=== PATIENT | female | born 1950 | race Caucasian/White ===

== ENCOUNTER 2022-01-02 13:53 | Emergency (ER) | payer BC, SELFPAY ==
--- NOTE | ~2022-01-02 | XR_ITS ---
EXAMINATION: XR CHEST CLINICAL INFORMATION: Tachycardia/hypertension COMPARISON: None TECHNIQUE: Frontal view of the chest was obtained. FINDINGS: No significant abnormality is noted involving the heart, lungs, mediastinum, bony thorax or soft tissues. XR/XR chest 1V IMPRESSION: Unremarkable chest examination.
[2022-01-02 15:21] VITALS: BP 158/101; PULSE 124; RESP 18; TEMP 37.2; O2SAT 96; BMI 34.4
--- NOTE | 2022-01-02 15:27 | ECG_ITS ---
Test Reason : tachycardia Blood Pressure : / mmHG Vent. Rate : 125 BPM Atrial Rate : 125 BPM P-R Int : 154 ms QRS Dur : 068 ms QT Int : 314 ms P-R-T Axes : 048 029 114 degrees QTc Int : 453 ms Sinus tachycardia Possible Left atrial enlargement Nonspecific ST and T wave abnormality Abnormal ECG No previous ECGs available Referred By: Generic ED Physician Electronically Signed By:ARYA PRIEST
[2022-01-02 15:50] LABS: MANUAL DIFF FLAG NO
[2022-01-02 15:51] LABS: Appearance Urine HAZY; Basophils Percent Auto 0.4 % (0-2); Color Urine YELLOW; Eosinophils Percent Auto 0.4 % (0-4); Glucose Urine UA >=1000 MG/DL (NEG); Hematocrit 49.9 % (37.0-47.0); Hemoglobin 16.5 g/dl (12.0-16.0); Imm Gran Abs Auto 0.03 X10*3/uL (0.00-0.03); Imm Gran Pct Auto 0.3 % (0.0-0.4); Leukocyte Esterase Urine NEG (NEG); Lymphocytes Absolute Auto 2.7 X10*3/uL (1.2-4.9); Mean Corpuscular HGB Conc 33.1 g/dl (31.0-35.0); Mean Corpuscular Hemoglobin 29.6 pg (27.0-33.0); Mean Corpuscular Volume 89.6 fL (80.0-98.0); Monocytes Absolute Auto 0.9 X10*3/uL (0.1-1.2); Neutrophils Absolute Auto 5.9 x10*3/uL (2.0-8.3); Neutrophils Percent Auto 61.9 % (45-73); Nitrite Urine NEG (NEG); PH 5.5 (5.0-8.0); Platelet Count 320 X10*3/uL (160-400); Red Blood Count 5.57 X10*6/uL (4.20-5.50); Red Cell Distribution Width 13.2 % (11.0-16.0); Specific Gravity - Urine 1.025 (1.005-1.025); UACC Culture Trigger NO; Urine Blood TRACE (NEG); Urine Ketones 40 MG/DL (NEG); Urine Protein NEG (NEG-TRACE); White Blood Count 9.5 X10*3/uL (4.8-10.8)
[2022-01-02 16:01] LABS: Bacteria Urine TRACE /LPF; RBC Urine 0-2 /HPF (0); Squamous Epithelial Cell Urine 1+ /LPF; WBC Urine 0 /HPF (0-4)
[2022-01-02 16:03] LABS: Anion Gap 17 (12-20); Blood Urea Nitrogen 13 mg/dL (9-16); Calcium 9.6 mg/dL (8.4-10.2); Carbon Dioxide 25 mmol/L (22-29); Chloride 98 mmol/L (96-108); Creatinine Clr Calc Pharmacy 49.8; Estimated Glomerular Filt Rate 59; Glucose Random 312 mg/dL (60-115); Potassium 4.2 mmol/L (3.3-5.1); Sodium 136 mmol/L (135-145)
[2022-01-02 16:11] VITALS: BP 196/96; PULSE 124
[2022-01-02 16:11] LABS: Troponin-I High Sensitivity 3.7 ng/L (<3.5-17.0)
--- NOTE | 2022-01-02 16:30 | ED_ITS ---
HPI - General Adult General Chief complaint: General Medical Stated complaint: UTI/Cellulitis Time Seen by Provider: 01/02/22 16:05 Source: patient Mode of arrival: ambulatory Limitations: no limitations History of Present Illness HPI narrative: This is a 71-year-old female with no significant medical history presenting to the emergency department with complaints of burning with urination, itching to the peritoneal are/vagina, white thick vaginal discharge, and pain/burning inside the vagina. She tells me that this started about 3-4 days ago and has been progressively worsening. She tells me this has never happened to her before. She tells me her urine is darker than usual. Denies recent antibiotic use, recent upper respiratory infection. Does not have a history of diabetes. She is not immunocompromised that she knows of. She denies fevers, chills, nausea, vomiting, chest pain, shortness of breath, abdominal pain, changes in bowel habits. Patient tells me that she place warm compresses to the affected area and sort of helped. Onset (ago): day(s) (3) Location: genitals Radiation: non-radiation Severity: severe Quality: burning Relieving factors: none Exacerbating factors: none Associated symptoms: denies other symptoms Treatments prior to arrival: none Related Data Previous Rx's Medication Instructions Recorded fluconazole 150 mg tablet 150 mg PO DAILY #1 tab 01/02/22 Allergies Allergy/AdvReac Type Severity Reaction Status Date / Time Unable to Assess Allergy Unverified 01/02/22 16:05 Review of Systems Review of Systems: Constitutional : No Weight loss, No Fever, No Chills, No Fatigue, No Malaise ENT/Mouth : No sore throat, No Rhinorrhea Eyes: No Eye Pain, No Swelling, No Redness Cardiovascular : No Chest Pain, No SOB, No Dyspnea on Exertion, No Orthopnea, No Edema, No Palpitations Respiratory : No Cough, No Sputum, No Wheezing Gastrointestinal : No Nausea, No Vomiting, No Diarrhea, No Constipation, No abdominal Pain, No Hematochezia, No Melena Genitourinary : No Dysuria, No Urinary Frequency, No Hematuria, Musculoskeletal : No joint pain, No Myalgias, No Joint Swelling Skin : No Skin Lesions, No rash Neuro : No Weakness, No Numbness, No Dizziness, No Headache Psych : No Anxiety/Panic, No Depression All other systems reviewed and are negative Yes all other systems are reviewed and are negative [facility] Past Medical History Attestation statement: The following information was validated with the patient. Source: old records reviewed and nursing notes reviewed Surgical History H/O: hysterectomy Social History Social History Advance Directives: No Advance Directives Information Provided: Yes Physical Exam ED Vital Signs: Vital Signs - 24 hr 01/02/22 15:21 01/02/22 16:11 Temperature 98.9 F Pulse Rate 124 H 124 H Respiratory Rate 18 Blood Pressure 158/101 H 196/96 H Pulse Oximetry 96 BMI result Body Mass Index 34.4 Vital signs stable patient is noted to be slightly hypertensive. However not having any symptoms of hypertension such as headaches, dizziness, vision changes, neck pain, lightheadedness, disequilibrium. Appearance: Alert.? Oriented X3.? No acute distress.? Head: Normocephalic, atraumatic, no step-offs or deformities ENT: Pharynx normal.? Neck: Normal inspection.? Neck supple.? CVS: Normal heart rate and rhythm.? Pulses normal.? Respiratory: No respiratory distress.? Breath sounds normal.? Abdomen: Soft and nontender.? Skin: Skin warm and dry.? Normal skin color.? Normal skin turgor.? Sensitive exam: Patient's labia noted to be edematous, erythematous, there are small white lesions noted to the labia likely secondary to excoriations. There is a white thick curd like vaginal discharge noted. Normal internal exam other than some white thick curd like vaginal discharge Extremities: No lower extremity edema.? No calf ttp. 5/5 strength to bilateral upper and lower extremities Neuro: Oriented X 3.? No motor deficit.? No sensory deficit. CN 2-12 intact Course Reevaluation(s) Reevaluation #1: No leukocytosis, no evidence signs of anemia. H&H slightly elevated likely secondary to dehydration/hemoconcentration. Chemistry with no acute electrolyte abnormalities. Patient's sugar is noted to be elevated, I will have her follow- up with her PCP for following of her glucose. If her glucose has been elevated for a while, undiagnosed this could be contributing to yeast infection. Troponin negative EKG nonischemic. Unlikely ACS. Chest x-ray within normal limits. UA negative for infection. Serology pending at this time. No signs of cellulitis. Time: 16:40 Reevaluation #2: Patients heart rate improved. Patient tells me doctors offices/hospitals make her very nervous. Repeat BP 150/88 Pulse 90. Denies palpitations, cp, sob, meadows, dizziness Patient swab positive for yeast. Herpes, chlamydia, BV, Trichomonas pending. At this time patient will be given Diflucan, discharged home with OBGYN follow- up. I will also have her follow-up with a PCP. I discussed with patient that her sugar was elevated and she should follow-up with a provider to further look into this. I gave patient a list of PCPs in the area who she can follow-up with. I made it clear to patient that this could be high sugars leading to a fungal infection. Patient understand severity of this, she tells me she will see If needed. Provided her with discharge instructions and strict return precautions. Comfortable w/ discharge home Time: 17:53 Medical Decision Making [facility] Narrative Medical decision making narrative: [id number] 71 yo f presents w/ burning with urination, vaginal discharge, and puritis to the vaginal/peritoneal area x3 days worsening. Upon exam there is white thick curd like vaginal discharge noted likely yeast some excoriations are also noted overlying bilateral labia is. The labia is noted to be slightly edematous and erythematous. No evidence signs of cellulitis. The area is not warm to the touch. Patient's blood pressure is noted to be elevated however she is not having symptoms associated with hypertension denies vision changes, headache, neck pain, dizziness, disequilibrium, lethargy, confusion. She was also noted to be tachycardic initially however she appear to be anxious. She is much calmer now in her heart rate has gone down. She denies shortness of breath, calf pain, negative Tra bilaterally unlikely DVT/PE. Plan at this time is to obtain basic labs, urine, bacterial vaginosis, Trichomonas, yeast, chlamydia, gonorrhea, herpes swabs. I will prophylactically treat patient for a yeast infection at this time. And wait further swabs to come back as the likely diagnosis is yeast. To note patient tells me she has not seen a doctor in over 30 years, not regularly followed by an OBGYN, I advised her to follow-up with an OBGYN for further evaluation. Medical Records Medical records reviewed: Yes I reviewed the patient's medical records. Lab Data Lab results reviewed: Yes I reviewed the patient's lab results. Result diagrams: 01/02/22 15:44 01/02/22 15:44 Labs: Lab Results 01/02/22 01/02/22 01/02/22 Range/Units 15:44 15:44 15:44 WBC 9.5 (4.8-10.8) X10*3/uL RBC 5.57 H (4.20-5.50) X10*6/uL Hgb 16.5 H (12.0-16.0) g/dl Hct 49.9 H (37.0-47.0) % MCV 89.6 (80.0-98.0) fL MCH 29.6 (27.0-33.0) pg MCHC 33.1 (31.0-35.0) g/dl RDW 13.2 (11.0-16.0) % Plt Count 320 (160-400) X10*3/uL MPV 9.0 L (9.4-12.3) fL Immature Gran % (Auto) 0.3 (0.0-0.4) % Neut % (Auto) 61.9 (45-73) % Lymph % (Auto) 28.0 (20-40) % [place] % (Auto) 9.0 (2-11) % Eos % (Auto) 0.4 (0-4) % Baso % (Auto) 0.4 (0-2) % Lymph # (Auto) 2.7 (1.2-4.9) X10*3/uL [place] # (Auto) 0.9 (0.1-1.2) X10*3/uL Eos # (Auto) 0.0 (0.0-0.4) X10*3/uL Baso # (Auto) 0.0 (0.0-0.2) X10*3/uL Abs Immat Gran (auto) 0.03 (0.00-0.03) X10*3/uL Absolute Neuts (auto) 5.9 (2.0-8.3) x10*3/uL Absolute Nucleated RBC 0.000 (0.0-0.012) X10*3/uL Nucleated RBC % (auto) 0.0 (0.0-0.2) /100WBC Sodium 136 (135-145) mmol/L Potassium 4.2 (3.3-5.1) mmol/L Chloride 98 (96-108) mmol/L Carbon Dioxide 25 (22-29) mmol/L Anion Gap 17 (12-20) BUN 13 (9-16) mg/dL Creatinine 0.93 (0.5-1.4) mg/dL Estim Creat Clear Calc 49.8 Estimated GFR 59 Random Glucose 312 H (60-115) mg/dL Calcium 9.6 (8.4-10.2) mg/dL AST 25 (5-31) U/L ALT 40 H (0-31) U/L Troponin I High Sens 3.7 (<3.5-17.0) ng/L Urine Color Urine Appearance Urine pH (5.0-8.0) Ur Specific [place] (1.005-1.025) Urine Protein (NEG-TRACE) MG/DL Urine Glucose (UA) (NEG) MG/DL Urine Ketones (NEG) MG/DL Urine Blood (NEG) Urine Nitrite (NEG) Ur Leukocyte Esterase (NEG) Urine RBC (0) /HPF Urine WBC (0-4) /HPF Ur Squamous Epith Cells /LPF Urine Bacteria /LPF 01/02/22 Range/Units 15:44 WBC (4.8-10.8) X10*3/uL RBC (4.20-5.50) X10*6/uL Hgb (12.0-16.0) g/dl Hct (37.0-47.0) % MCV (80.0-98.0) fL MCH (27.0-33.0) pg MCHC (31.0-35.0) g/dl RDW (11.0-16.0) % Plt Count (160-400) X10*3/uL MPV (9.4-12.3) fL Immature Gran % (Auto) (0.0-0.4) % Neut % (Auto) (45-73) % Lymph % (Auto) (20-40) % [place] % (Auto) (2-11) % Eos % (Auto) (0-4) % Baso % (Auto) (0-2) % Lymph # (Auto) (1.2-4.9) X10*3/uL [place] # (Auto) (0.1-1.2) X10*3/uL Eos # (Auto) (0.0-0.4) X10*3/uL Baso # (Auto) (0.0-0.2) X10*3/uL Abs Immat Gran (auto) (0.00-0.03) X10*3/uL Absolute Neuts (auto) (2.0-8.3) x10*3/uL Absolute Nucleated RBC (0.0-0.012) X10*3/uL Nucleated RBC % (auto) (0.0-0.2) /100WBC Sodium (135-145) mmol/L Potassium (3.3-5.1) mmol/L Chloride (96-108) mmol/L Carbon Dioxide (22-29) mmol/L Anion Gap (12-20) BUN (9-16) mg/dL Creatinine (0.5-1.4) mg/dL Estim Creat Clear Calc Estimated GFR Random Glucose (60-115) mg/dL Calcium (8.4-10.2) mg/dL AST (5-31) U/L ALT (0-31) U/L Troponin I High Sens (<3.5-17.0) ng/L Urine Color YELLOW Urine Appearance HAZY Urine pH 5.5 (5.0-8.0) Ur Specific [place] 1.025 (1.005-1.025) Urine Protein NEG (NEG-TRACE) MG/DL Urine Glucose (UA) >=1000 H (NEG) MG/DL Urine Ketones 40 (NEG) MG/DL Urine Blood TRACE (NEG) Urine Nitrite NEG (NEG) Ur Leukocyte Esterase NEG (NEG) Urine RBC 0-2 (0) /HPF Urine WBC 0 (0-4) /HPF Ur Squamous Epith Cells 1+ /LPF Urine Bacteria TRACE /LPF ECG Data Attestation: I personally reviewed and interpreted this ECG as follows: Prior ECG tracings: available for review Interpretation: Ventricular rate of 125, ND normal, QRS normal, QT/QTC normal. EKG shows sinus tachycardia with possible left atrial enlargement, no ST elevations or inversions concerning for ischemia. No previous EKGs to compare with. Critical Care Time Critical Care Time Critical Care Time: No Discharge Plan Discharge Clinical Impression: Candidiasis of vulva and vagina Patient Disposition: Home, Self-Care Additional Instructions: Take your medications as prescribed. If you were prescribed antibiotics today, it is important that you take your medication to their entirety, do not skip any doses, do not finish them early. Follow-up with your primary care provider this week. Please also follow-up with an OBGYN provider, this is important as you have not seen 1 in years. Return to the emergency department with new or worsening symptoms. Such as fev ers, chills, chest pain, shortness of breath, nausea, vomiting, dizziness, headache, vision changes, lethargy In case of emergency call 911 We have given you 1 dose of Diflucan today, if needed please take another 1- 2 days. Your prescriptions [facility] Please follow-up with a primary care provider I have provided you with a list of primary care providers in the area. Your random glucose level was 312 today, you should be further evaluated by your PCP. You are also noted to have a high blood pressure today, it is important that you follow-up with your PCP. If possible please check your blood pressure at home on Mondays, Wednesdays and Fridays, write this information down and share it with your primary care provider. Prescriptions: New fluconazole 150 mg tablet 150 mg PO DAILY Qty: 1 0RF Referrals: Physician,None [Primary Care Provider] - 2 days Jose Hobson MD [Physician] - 1 week Stand Alone Forms: Work/School Release
[2022-01-02 17:03] LABS: Add Laboratory Test ADDED
[2022-01-02 17:14] LABS: Alanine Aminotransferase 40 U/L (0-31); Aspartate Amino Transferase 25 U/L (5-31)
[2022-01-02] MEDS: Fluconazole 150 MG TABLET PO (17:19)
[2022-01-02 17:52] VITALS: BP 155/88; PULSE 90; O2SAT 95
[2022-01-03 09:56] LABS: CT PCR NOT DETECTED (Not Detect.); NG PCR NOT DETECTED (Not Detect.)
[2022-01-03 11:16] LABS: BV Int Neg Control Negative (Negative); BV Int Pos Control Positive (Positive)
== END 2022-01-02 18:10 | disposition home or self-care (01) ==
PROVIDERS: Physician Assistant; Emergency Provider Internal Medicine
DX: A60.04 Herpesviral vulvovaginitis (principal); B37.3 Candidiasis of vulva and vagina; N76.0 Acute vaginitis
CPT/HCPCS: 36415; 71045; 80048; 81001; 84450; 84460; 84484; 85025; 87255; 87480; 87491; 87510; 87591; 87660; 93005; 99283; 99284

== ENCOUNTER 2022-02-17 10:37 | Outpatient (REF) | payer BC, SELFPAY ==
[2022-02-18 13:16] LABS: BV Int Neg Control Negative (Negative); BV Int Pos Control Positive (Positive)
== END 2022-02-17 10:38 | disposition home or self-care (01) ==
LOC: HO.LAB 10:37
PROVIDERS: Visit Provider Obstetrics & Gynecology
DX: N76.0 Acute vaginitis (principal)
CPT/HCPCS: 87480; 87510; 87660

== ENCOUNTER 2022-03-06 10:58 | Outpatient (REF) | payer BC, SELFPAY | END 2022-03-06 10:59 | disposition home or self-care (01) | LOC: HO.LAB 10:58 | PROVIDERS: Visit Provider Obstetrics & Gynecology | DX: N90.89 Other specified noninflammatory disorders of vulva and perineum (principal) | CPT/HCPCS: 56605; 56606; 88305 ==

== ENCOUNTER 2022-04-03 10:35 | Outpatient (REF) | payer BC, SELFPAY | END 2022-04-03 10:36 | disposition home or self-care (01) | LOC: HO.LAB 10:35 | PROVIDERS: Visit Provider Obstetrics & Gynecology | DX: N90.89 Other specified noninflammatory disorders of vulva and perineum (principal) | CPT/HCPCS: 56605; 88304; 88305 ==

== ENCOUNTER 2022-05-20 09:31 | Outpatient (REF) | payer BC, SELFPAY ==
--- NOTE | ~2022-05-20 | MM_ITS ---
EXAMINATION: BONE DENSITOMETRY CLINICAL INDICATION: Menopause. COMPARISON: None (current study represents initial baseline exam). TECHNIQUE: Using a [employer] DXA System (software version: 13.1) manufactured by [employer], dual-energy x-ray absorptiometry was performed of the lumbar spine and left hip. The images are of good technical quality. Summary results are attached. FINDINGS: AP SPINE L1-L4: BMD 1.303 g/cm2, Z-score 2.1, T-score 1.0, normal. LEFT FEMUR, NECK: BMD 0.948 g/cm2, Z-score 0.7, T-score -0.6, normal. LEFT FEMUR, TOTAL: BMD 1.052 g/cm2, Z-score 1.5, T-score 0.4, normal. IDENTIFIED RISK FACTORS: Early menopause, history of fracture (adult), hysterectomy, bilateral oophorectomy, secondary osteoporosis. HISTORY OF FRACTURE: Lower leg/foot. MEDICATIONS: None listed. MM/XR DEXA axial skeleton IMPRESSION: 1. DIAGNOSIS: Normal bone density based on the lowest T-score value of -0.6 in the femoral neck applying World Health Organization criteria. 2. 10-YEAR FRACTURE RISK PREDICTION, FRAX: According to the guidelines, FRAX calculation should only be performed on patients in the osteopenia bone density category. Therefore, FRAX was not performed on this patient. 3. Treatment Recommendations: NOF guidelines recommend consideration for treatment in postmenopausal women and men age 50 and older presenting with the following: -A hip or vertebral (clinical or morphometric) fracture. -T-score less than or equal to -2.5 at the femoral neck or spine after appropriate evaluation to exclude secondary causes. -Low bone mass at the hip or spine and a 10-year fracture probability by FRAX of greater than or equal to 3% for hip fracture or greater than or equal to 20% for major osteoporotic fracture based on the [place] adapted WHO algorithm. 4. Other Recommendations: All treatment decisions require clinical judgment and consideration of individual patient factors, including patient preferences, comorbidities, previous drug use, risk factors not captured in the FRAX model (e.g. frailty, falls, vitamin D deficiency, increased bone turnover, interval significant decline in bone density) and possible under or overestimation of fracture risk by FRAX. FUTURE SCAN RECOMMENDATION: People with diagnosed cases of osteoporosis or at high risk for fracture should have regular bone mineral density tests. For patients eligible for Medicare, routine testing is allowed once every 2 years. The testing frequency can be increased to one year for patients who have rapidly progressing disease, those who are receiving or discontinuing medical therapy to restore bone mass, or have additional risk factors.
--- NOTE | ~2022-05-20 | MM_ITS ---
EXAMINATION: MM SCREENING DIGITAL BREAST TOMOSYNTHESIS, BILATERAL CLINICAL INFORMATION: Screening. Asymptomatic. The lifetime risk of breast cancer based on the Tyrer-Cuzick Model is 5%. COMPARISON: Mammography: None. TECHNIQUE: Digital breast tomosynthesis is performed in both the craniocaudal and mediolateral oblique views along with computer-aided detection (CAD). Synthesized 2D images are generated from the tomosynthesis. FINDINGS: The breasts are almost entirely fatty (ACR BI-RADS breast composition Category a). Right Breast: Right breast appears unremarkable without abnormal dominant mass or grouping of suspicious calcifications. Left Breast: About the retroareolar region of the left breast, there is a lobular circumscribed density measuring approximately 7 x 6 4 mm in size for which spot compression view and ultrasound is recommended. MM/MM tomosynthesis screening BI IMPRESSION: Left breast density for further evaluation as described. ASSESSMENT: BI-RADS 0: Incomplete - Need Additional Imaging Evaluation RECOMMENDATION: 1. Additional views of the left breast. 2. Targeted ultrasound if warranted after review of the additional views. 3. Radiology department staff will contact the patient for additional imaging.
== END 2022-05-20 09:32 | disposition home or self-care (01) ==
LOC: HO.MAMMO 09:31
PROVIDERS: Visit Provider Obstetrics & Gynecology
DX: Z13.820 Encounter for screening for osteoporosis (principal); Z12.31 Encounter for screening mammogram for malignant neoplasm of breast; Z78.0 Asymptomatic menopausal state
CPT/HCPCS: 77063; 77067; 77080

== ENCOUNTER 2022-06-05 14:43 | Outpatient (REF) | payer BC, SELFPAY ==
--- NOTE | ~2022-06-05 | MM_ITS ---
EXAMINATION: MM DIAGNOSTIC DIGITAL BREAST TOMOSYNTHESIS, LEFT US DIAGNOSTIC ULTRASOUND BREAST, LEFT CLINICAL INFORMATION: Recall from new baseline mammography for small nodule retroareolar left breast. COMPARISON: Mammography 05/20/2022 (new baseline, BI-RADS 0). TECHNIQUE: Digital breast tomosynthesis is performed. 2D images are generated from the tomosynthesis. The following views are obtained: Spot CC, spot ML. Ultrasound left breast is targeted to the lower retroareolar region using grayscale imaging and color Doppler. FINDINGS: The breasts are almost entirely fatty (ACR BI-RADS breast composition Category a). Additional views show smooth 5 mm nodule 6:00 retroareolar region. Chronicity is unknown. Prior mammography performed decades ago and no longer available. Ultrasound left breast demonstrates a circumscribed complicated cyst 6:00 retroareolar region measuring 0.5 cm. There are some geographic internal echoes without surrounding or internal color flow, likely benign apocrine metaplasia. No associated duct ectasia. No solid mass. Results are discussed with the patient at time of visit. Management plan is for short interval six-month follow-up left breast imaging to confirm stability of probable benign complicated cyst. MM/MM tomosynthesis added views L IMPRESSION: Small benign-appearing complicated cyst 6:00 retroareolar region. ASSESSMENT: BI-RADS 3: Probably Benign RECOMMENDATION: Diagnostic left mammography and targeted left breast ultrasound in 6 months. This patient's information was entered into a reminder system with a target due date for their next mammogram.
== END 2022-06-05 14:44 | disposition home or self-care (01) ==
LOC: HO.MAMMO 14:43
PROVIDERS: Visit Provider Obstetrics & Gynecology
DX: R92.2 Inconclusive mammogram (principal); N63.25 Unspecified lump in the left breast, overlapping quadrants
CPT/HCPCS: 76642; 77061; 77065

== ENCOUNTER 2022-12-09 10:39 | Outpatient (REF) | payer BC, SELFPAY ==
--- NOTE | ~2022-12-09 | MM_ITS ---
EXAMINATION: MM DIAGNOSTIC DIGITAL BREAST TOMOSYNTHESIS, LEFT US DIAGNOSTIC ULTRASOUND BREAST, LEFT CLINICAL INFORMATION: Short interval six-month follow-up probable benign nodule/complicated cyst retroareolar left breast initially noted at new baseline mammography. TC score 5%. COMPARISON: Mammography: 06/05/2022, 05/20/2022 (new baseline, BI-RADS 0), left breast ultrasound 06/05/2022. TECHNIQUE: Digital breast tomosynthesis is performed in both the craniocaudal and mediolateral oblique views along with computer-aided detection (CAD). Synthesized 2D images are generated from the tomosynthesis. Ultrasound left breast retroareolar region is performed using grayscale and color Doppler without and with harmonics. FINDINGS: The breasts are almost entirely fatty (ACR BI-RADS breast composition Category a). The retroareolar nodule is stable. There is no developing density or interval architectural abnormality. No abnormal calcifications. Remainder left breast unremarkable. Ultrasound demonstrates circumscribed complicated cyst 6:00 retroareolar region under 1 cm, similar to prior targeted ultrasound. There are some internal geographic echoes without color flow, likely benign apocrine metaplasia. Results are discussed with the patient at time of visit. MM/MM tomosynthesis diagnostic LT IMPRESSION: -Benign-appearing retroareolar nodule stable. ASSESSMENT: BI-RADS 3: Probably Benign RECOMMENDATION: Diagnostic mammography and targeted left breast ultrasound at time of annual bilateral mammography, due in 6 months. This patient's information was entered into a reminder system with a target due date for their next mammogram.
== END 2022-12-09 10:40 | disposition home or self-care (01) ==
LOC: HO.MAMMO 10:39
PROVIDERS: Visit Provider Obstetrics & Gynecology
DX: R92.2 Inconclusive mammogram (principal)
CPT/HCPCS: 76642; 77061; 77065

== ENCOUNTER 2023-06-09 14:32 | Outpatient (AMB) | payer BC, SELFPAY ==
--- NOTE | 2023-06-09 14:34 | MHC.OFFVIS ---
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 No complaints. Last Pap/HPV was normal many years ago no history of abnormal Pap see last 25 years Last Mammogram BI-RADS 3 in 12/25, the patient is scheduled for another screening mammogram in a week The patient has recently seen her GI were recommended no more colonoscopies Last DEXA scan was done in 05/26 [facility] Medical History Diabetes High blood pressure Surgical History H/O: hysterectomy Social History Household Members: None Housing: House Alcohol intake: never Patient Tobacco Use Status: Former Tobacco user Female Reproductive History Menstrual control method: permanent sterilization Total pregnancies: 4 Full term: 3 Number of Living Children: 3 Ab spontaneous: 1 Date of Mammogram: 12/09/22 Review of Systems Const All systems reviewed & are unremarkable except as noted in HPI and below Card Reports as per HPI Resp Reports as per HPI GI Reports as per HPI and Reports no additional complaints Reports as per HPI Physical Exam Vital Signs: Last Vital Signs BP 130/78 06/09/23 14:36 BMI result Body Mass Index 32.7 Const General: cooperative, healthy appearing and comfortable Chest Chest palpation & inspection: normal inspection of the chest and normal palpation of entire chest wall Breast/axilla inspection: normal inspection of the breasts and normal inspection of the axillae Breast/axilla palpation: normal palpation of the breasts, normal palpation of the axillae and no axillary lymphadenopathy Resp Effort & Inspection: normal respiratory effort Auscultation: clear to auscultation bilaterally Percussion: percussion normal Cardio Palpation: normal PMI Rate: regular rate Rhythm: regular rhythm Heart sounds: no murmurs and no rubs Peripheral pulses: Peripheral pulses 2+ throughout GI Inspection: Yes normal to inspection Palpation (GI): Soft to palpation, nontender, no guarding, not rigid and No hepatosplenomegaly present Percussion: Yes normal to percussion Auscultation: normal bowel sounds Rectal Exam - Female: deferred General: Yes bladder normal to palpation External Female Exam: No lesion Speculum Exam - Vagina: normal appearance of the vagina, normal palpation, normal vaginal discharge and not erythematous Speculum Exam - Cervix: normal appearance of the cervix and normal palpation Bimanual exam- vagina & uterus: normal bimanual exam, normal palpation, uterine size normal, bladder normal to palpation, consistency normal and normal palpation Bimanual Exam- Adnexa, other: normal adnexae, no masses and no tenderness Assessment & Plan Assessment & Plan (1) Well woman exam: Code(s): Z01.419 - Encounter for gynecological examination (general) (routine) without abnormal findings Plan: Co testing not indicated since the patient 's age is above 65 with no history of abnormal Pap smears last 25 years. Counseled the patient about the recommended dietary allowance of 1200 mg of Calcium & 800 IU of vitamin D. Mammogram scheduled in 2 weeks. The patient was instructed to perform monthly self-breast exams and to schedule an annual exam in a year; all questions answered and the patient verbalized understanding. Coding Level of Care Code Est Pt Prev Care >65y(97869) Diagnoses Well woman exam Z01.419
[2023-06-09 14:36] VITALS: BP 130/78; BMI 32.7
== END 2023-06-09 15:07 | disposition home or self-care (01) ==
PROVIDERS: Visit Provider Obstetrics & Gynecology
DX: Z01.419 Encounter for gynecological examination (general) (routine) without abnormal findings (principal)
CPT/HCPCS: 99397

== ENCOUNTER → 2023-06-09 14:32 | Outpatient (BNVA) | payer BC, SELFPAY | PROVIDERS: Visit Provider Obstetrics & Gynecology ==

== ENCOUNTER 2023-06-18 13:53 | Outpatient (REF) | payer BC, SELFPAY ==
--- NOTE | ~2023-06-18 | US_ITS ---
EXAMINATION: MM DIAGNOSTIC DIGITAL BREAST TOMOSYNTHESIS, BILATERAL US BREAST LIMITED, LEFT MAMMOGRAPHY: CLINICAL INFORMATION: 6 month Follow-up probably benign complicated cyst left breast retroareolar region. Patient also due for bilateral screening. COMPARISON: Mammography: 12/09/2022, 06/05/2022, 05/20/2022. TECHNIQUE: Digital breast tomosynthesis is performed in both the craniocaudal and mediolateral oblique views along with computer-aided detection (CAD). Synthesized 2D images are generated from the tomosynthesis. FINDINGS: The breasts are almost entirely fatty (ACR BI-RADS breast composition Category a). There is a stable and unchanged circumscribed 5 mm nodule in the left breast anterior one third, retroareolar region. This will be evaluated by ultrasound. Otherwise, their are no suspicious masses, suspicious grouped calcifications, or areas of architectural distortion in either breast. The parenchymal pattern is stable from prior exams. ULTRASOUND: CLINICAL INFORMATION: 6 month follow-up probably benign complicated cyst left breast retroareolar region. COMPARISON: 12/09/2022, 06/05/2022. TECHNIQUE: Targeted sonographic evaluation was performed using a high frequency linear transducer. Attention was given to the left retroareolar complicated cyst. Selected archived documentation. FINDINGS: LEFT BREAST: There is a stable 5 mm complicated cyst in the retroareolar region of the left breast. It is completely unchanged in size and morphology. This has been stable over one year, and is benign. No further follow-up is deemed necessary. US/US breast LT limited mamm only IMPRESSION: There are no findings suspicious for malignancy. There are no changes from the prior studies. Stable 5 mm complicated cyst in the left retroareolar breast is benign and requires no further follow-up. Recommend the patient return to routine annual screening. OVERALL ASSESSMENT: Mammography: BI-RADS 2 - Benign Findings Ultrasound: BI-RADS 2 - Benign Findings RECOMMENDATION: 1 year F/U Results were provided to the patient at time of visit by the technologist. This patient's information was entered into a reminder system with a target due date for their next mammogram.
== END 2023-06-18 13:54 | disposition home or self-care (01) ==
LOC: HO.MAMMO 13:53
PROVIDERS: PCP Internal Medicine; Visit Provider Obstetrics & Gynecology
DX: N63.42 Unspecified lump in left breast, subareolar (principal)
CPT/HCPCS: 76642; 77062; 77066

== ENCOUNTER → 2023-06-18 14:00 | Outpatient (BNV) | payer BC, SELFPAY | PROVIDERS: PCP Internal Medicine; Visit Provider Radiology Diagnostic Radiology | DX: N60.02 Solitary cyst of left breast (principal) | CPT/HCPCS: 76642; 77062; 77066 ==

== ENCOUNTER 2024-04-01 10:04 | Outpatient (AMB) | payer BC, SELFPAY ==
[2024-04-01 10:11] VITALS: BP 144/64; PULSE 97; BMI 33.2
--- NOTE | 2024-04-01 10:11 | MHC.OFFVIS ---
Vital Signs 04/01/24 10:11 Height 4 ft 11 in Weight 164 lb 3.91 oz BMI 33.2 BP 144/64 H Blood Pressure Location Lt brachial Position Sitting Pulse 97 Pulse Source Pulse Oximeter Intake Visit Reasons: T2DM/CONFIRMED Intake Note: New patient present today for T2DM, referred by PCP. Last Diabetic Eye exam: 02/2024 Last Podiatry Visit: Doesn't have one. 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 Accompanied by: Daughter Allergies Unable to Assess Allergy (Verified 04/01/24 10:18) Medication List - Last Reconciled 04/01/24 by Ashley Astudillo PA-C atorvastatin 10 mg PO DAILY blood sugar diagnostic (Accu-Chek Guide test strips) As directed blood-glucose meter (Accu-Chek Guide Glucose Meter) As directed clotrimazole-betamethasone 1-0.05 % 1 appl topical BID 5 days empagliflozin (Jardiance) 25 mg PO DAILY glipizide ER 2.5 mg PO DAILY lancets (Accu-Chek Softclix Lancets) As directed lisinopril 5 mg PO DAILY metoprolol succinate ER 25 mg PO DAILY HPI HPI T2DM/CONFIRMED: Details: Patient is a 74-year-old female with a significant past medical history of hypertension, hyperlipidemia, type 2 diabetes, and osteopenia presenting today for a diabetic consult. She is accompanied today by her daughter. Endo: Her A1c today is 8. She is currently on metformin 500 mg bid, glipizide 5 mg daily, Jardiance 25 mg a day. She is on an Jonathan inhibitor. Compliant with statin. She does not know her last lipid panel. Denies any hypoglycemic events. She was 1st diagnosed with diabetes last year. She states that when she 1st sought medical care in 30 years. She had symptoms of polyuria polydipsia in frequent UTIs. Her A1c initially was 13.5. She states that her blood sugars have been about 130-150 in the morning. She has not had any diabetic Education. She only checks her blood sugars once a day and states that she does not like doing this because needles make her nervous. Multiple people have diabetes in her family and a lot of them have CGM. She is wondering if she could get this today. Her last eye exam was 02/25 and she states that she was diagnosed with cataracts. This is her 1st eye exam in about 40 years. She does not see a size worker but sometimes gets tingling in her feet. Niece has thyroid cancer. CV: Her blood pressure today in the office is 144/64. States that her blood pressures are normally normal but she is nervous here today. She is on lisinopril 5 mg, metoprolol 25 mg. Cholesterol is managed with atorvastatin 10 mg. Uro: She is also dealing with a possible bladder cancer diagnosis. Had biopsies earlier this week. She is awaiting pathology. [facility] Medical History (Updated 04/01/24 @ 11:54 by Ashley Astudillo PA-C) Diabetic cataract of both eyes Uncontrolled type 2 diabetes mellitus with hyperglycemia Diabetes High blood pressure Surgical History (Updated 04/01/24 @ 10:20 by MADISON Eddy) History of bladder surgery H/O: hysterectomy Social History Household Members: None Housing: House Alcohol intake: never Patient Tobacco Use Status: Former Tobacco user Physical Exam Vital Signs: Last Vital Signs Pulse 97 04/01/24 10:11 BP 144/64 H 04/01/24 10:11 BMI result Body Mass Index 33.2 Const Orientation/consciousness: patient oriented x3 Neck Neck: Yes no lymphadenopathy Thyroid: Thyroid normal Carotids: no bruits Resp Auscultation: clear to auscultation bilaterally Cardio Rate: regular rate Rhythm: regular rhythm Heart sounds: S1 normal heart sound present and S2 normal heart sound present Peripheral pulses: dorsalis pedis present Neuro General: patient oriented x3, gait normal and no focal motor deficits Extrem Other: Monofilament sensation intact bilaterally. Vibratory sensation diminished bilaterally. Left worse than right. Skin intact. General: Yes normal to inspection Results AMB Hemoglobin A1c AMB Hemoglobin A1c 8.0 % Last Edit by MADISON Eddy on 04/01/24 11:28 Results Reviewed Results Reviewed: Laboratory Last Values Glucose (Clinic) 142 mg/dL (60-115) H 04/01/24 10:21 Assessment & Plan Assessment & Plan (1) Uncontrolled type 2 diabetes mellitus with hyperglycemia: Code(s): E11.65 - Type 2 diabetes mellitus with hyperglycemia Category: Medical Plan: We spent over an hour discussing the pathophysiology of type 2 diabetes, complications associated with diabetes and different oral medications/insulin/GLPs. We reviewed her diet and how it is very carbohydrate that. I have encouraged her to increase her protein and vegetable intake. We discussed the importance walking. Advised that she needs to monitor her feet daily. I have increased the metformin and she is going to make some lifestyle modifications. I will refer her for further diabetic Education as she pleases will be helpful. I have also referred her to a chute operator and I have encouraged her to keep a food journal. (2) Diabetic cataract of both eyes: Code(s): E11.36 - Type 2 diabetes mellitus with diabetic cataract Category: Medical Plan: Continue follow-up with Ophthalmology. (3) Needle phobia: Code(s): F40.298 - Other specified phobia Category: Medical Plan: Freestyle Agustina ordered. Advised to bring to her appointment with DM education. (4) High blood pressure: Code(s): I10 - Essential (primary) hypertension Category: Medical Qualifiers: Hypertension type: primary hypertension Qualified Code(s): I10 - Essential (primary) hypertension Plan: Elevated above goal today. She does have an upcoming appointment with her PCP and have encouraged her to monitor blood pressures at home. 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 E11.65 - Type 2 diabetes mellitus with hyperglycemia, I10 - Essential (primary) hypertension Medications: New metformin ER 1,000 mg PO BID 60 tabs 6RF blood-glucose meter,continuous (FreeStyle Agustina 3 [place]) As directed 1 ea 0RF E11.36 - Type 2 diabetes mellitus with diabetic cataract, E11.65 - Type 2 diabetes mellitus with hyperglycemia, F40.298 - Other specified phobia, I10 - Essential (primary) hypertension blood-glucose sensor (FreeStyle Agustina 3 Sensor device) Apply every 14 days As directed 2 ea 11RF E11.36 - Type 2 diabetes mellitus with diabetic cataract, E11.65 - Type 2 diabetes mellitus with hyperglycemia, F40.298 - Other specified phobia Coding Level of Care Code New Pt Level 5 (35633) Diagnoses Uncontrolled type 2 diabetes mellitus with hyperglycemia E11.65 Diabetic cataract of both eyes E11.36 Needle phobia F40.298 Primary hypertension I10 Hypertension type: primary hypertension Time Spent (min) 85
[2024-04-01 10:26] LABS: Glucose, Whole Blood 142 mg/dL (60-115)
== END 2024-04-01 11:24 | disposition home or self-care (01) ==
PROVIDERS: PCP Internal Medicine; Visit Provider Physician Assistant
DX: E11.65 Type 2 diabetes mellitus with hyperglycemia (principal); E11.36 Type 2 diabetes mellitus with diabetic cataract; F40.298 Other specified phobia; I10 Essential (primary) hypertension; Z13.9 Encounter for screening, unspecified
CPT/HCPCS: 99205; 99417

== ENCOUNTER → 2024-04-01 10:04 | Outpatient (BNVA) | payer BC, SELFPAY | PROVIDERS: PCP Internal Medicine; Visit Provider Physician Assistant | DX: E11.65 Type 2 diabetes mellitus with hyperglycemia (principal); E11.36 Type 2 diabetes mellitus with diabetic cataract; F40.298 Other specified phobia; I10 Essential (primary) hypertension; Z79.84 Long term (current) use of oral hypoglycemic drugs | CPT/HCPCS: 82947; 83036 ==

== ENCOUNTER 2024-04-18 10:32 | Outpatient (AMB) | payer BC, SELFPAY ==
[2024-04-18 10:46] VITALS: BMI 32.6
--- NOTE | 2024-04-18 10:46 | A.OFFVIS_ITS ---
VS Expanded 04/18/24 10:46 Height 4 ft 11 in Weight 161 lb 9.581 oz BMI 32.6 Intake Visit Reasons: DM/CONFIRMED Allergies Unable to Assess Allergy (Verified 04/01/24 10:18) Nutrition Presentation Details: Pt presents for MNT for T2DM with HTN. Pt was referred by [place] Astudillo Pt presents with daughter to this appt. Pt reports having increased appetite in the evening BS Monitoring Most Recent Diabetes Results: No Data to Display DFJ-Lcoknkw-Ix.Jeor Equation Height: 4 ft 11 in Weight: 162 lb Resting Metabolic Rate: 1145.63 Calculated Activity Level: Sedentary Calories Needed to Maintain Weight: 1374.76 Diagnosis Nutrition problem #1: food nutri know defi As related to (etiology) #1: diagnosis As evidenced by (sign/symptom) #1: elevated HgbA1c (8% in 03/2024) [facility] Medical History (Updated 04/01/24 @ 11:54 by Ashley Astudillo PA-C) Diabetic cataract of both eyes Uncontrolled type 2 diabetes mellitus with hyperglycemia Diabetes High blood pressure Surgical History (Updated 04/01/24 @ 10:20 by MADISON Eddy) History of bladder surgery H/O: hysterectomy Social History Household Members: None Housing: House Alcohol intake: never Patient Tobacco Use Status: Former Tobacco user Assessment & Plan Assessment & Plan (1) Uncontrolled type 2 diabetes mellitus with hyperglycemia: Code(s): E11.65 - Type 2 diabetes mellitus with hyperglycemia Category: Medical Plan: Wt: 73 Kg ( 04/2024 ) Est kcal needs as per MSJ: 1400 (40% carb, 30% protein/fat) Est fluid needs as per 25-30 ml/d: 2200 Est prot per day as per 1 g/kg bw: 73 Recommend fiber intake : 8-10 g per day and gradually increase to 25-28 g per day for women and 35-38 g for men or as tolerated Recommend sodium intake per day : less than 2000 mg Educated patient on: ( R = reviewed V = verbalizes understanding N/R = needs review N/A = not applicable * Food sources of carbohydrate, adequate serving sizes and its role in various health conditions: R * Differences between complex carbohydrates a simple carbohydrates, role of fiber in diet: R V * Lean protein sources of foods: R * Differences between types of fats and role in diet (mono on saturated fat fatty acids, saturated fatty acids, trans fats): R V N/R * Food sources of sodium in salt and healthy modifications for heart health in kidney health: R V R/V * Vitamins and minerals: R V N/R * Healthy plate method concept: R * Physical activity: Benefits a precaution: R * Hypoglycemia protocol (rule of 15): R V N/R * Dietary prevention of Hyperglycemia: R Patient Instructions: follow healthy plate method at dinner Reduce carbs as snack to 20 g or less (yogurt, or fruit and lightly salted nuts or carrots with hummus as example - see list of options in combination Coding Level of Care Code Nutr Indiv Intake (69744) Diagnoses Uncontrolled type 2 diabetes mellitus with hyperglycemia E11.65 Time Spent (min) 30
[2024-04-18 11:20] VITALS: BMI 32.7
== END 2024-04-18 11:41 | disposition home or self-care (01) ==
PROVIDERS: PCP Internal Medicine; Visit Provider Dietitian, Registered
DX: E11.65 Type 2 diabetes mellitus with hyperglycemia (principal)

== ENCOUNTER 2024-04-18 10:32 | Outpatient (AMB) | payer BC, SELFPAY ==
--- NOTE | 2024-04-18 10:59 | A.OFFVIS_ITS ---
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 Accompanied by: Daughter Allergies Unable to Assess Allergy (Verified 04/01/24 10:18) HPI Comprehensive Diabetes Asmnt Most Recent Diabetes Results: Creatinine 0.93 mg/dL (0.5-1.4) 01/02/22 Blood Urea Nitrogen 13 mg/dL (9-16) 01/02/22 Sodium 136 mmol/L (135-145) 01/02/22 Potassium 4.2 mmol/L (3.3-5.1) 01/02/22 Chloride 98 mmol/L (96-108) 01/02/22 Carbon Dioxide 25 mmol/L (22-29) 01/02/22 Calcium 9.6 mg/dL (8.4-10.2) 01/02/22 AST 25 U/L (5-31) 01/02/22 ALT 40 U/L (0-31) H 01/02/22 PFSH Medical History (Updated 04/01/24 @ 11:54 by Ashley Astudillo PA-C) Diabetic cataract of both eyes Uncontrolled type 2 diabetes mellitus with hyperglycemia Diabetes High blood pressure Surgical History (Updated 04/01/24 @ 10:20 by MADISON Eddy) History of bladder surgery H/O: hysterectomy Social History Household Members: None Housing: House Alcohol intake: never Patient Tobacco Use Status: Former Tobacco user Assessment & Plan Assessment & Plan (1) Uncontrolled type 2 diabetes mellitus with hyperglycemia: Code(s): E11.65 - Type 2 diabetes mellitus with hyperglycemia Plan: Patient at visit to set up an insert Freestyle Agustina 3 Instructed patient sensors water proof you can shower, or swim do not submerge sensor in water for over 30 minutes Is sensor falls off cannot put back in you need to replace sensor, customer service number given to patient for sensor replacement sensor placed in the back of patient's arm Patient left visit with sensor in warmup Reviewed how to interpret trend arrows Reminded patient that to check finger sticks if symptoms do not match sensor reading. Discussed lag time between finger stick and sensor data.? Instructed patient she should always keep blood glucometer for backup testing if needed Reviewed delay of CGM from fingersticks Reminded pt that if symptoms do not match sensor still needs to check fingersticks. Learning objectives: The patient was provided with verbal and written education on the following topics as outlined below. Patient questions/concerns, patient was diagnosed with type 2 diabetes approximately a year ago. last A1c on 04/01/2024 8% patient agreed to start Diabetes Education classes on 05/04/2024 The patient met all learning objectives and was able to verbalize understanding and provide teach back of education topics discussed . The patient was provided with the opportunity to ask questions and all questions were answered. Topics covered in today?s session included: Medications (If applicable) * Name of medication? * Dosing/administration instructions? * Mechanism of action? * Potential side effects? * Potential adverse reaction and appropriate treatment? * Review onset, peak, duration Assess for concerns re: insurance coverage, cost, barriers to compliance Hypoglycemia and Hyperglycemia * Signs and symptoms? * Causes?? * Treatment? * Preventing hypoglycemia? * When to seek medical attention * Blood glucose targets and how you feel when your blood glucose is in and out of your target ranges. * Monitoring and knowing your A1C. * What can make blood glucose go up and down and preventing high and low blood glucose. * Review of blood sugar targets in expected goal range and outside of expected goal range. * Problem solving and preventing hyper/hypoglycemia. ?Patient was receptive to information provided and participated in the discussion. Asked?appropriate questions and demonstrated good understanding of the topics discussed.? ? Educational Materials: The patient was provided with the following written educational materials: Target Goal handout Smart Goal: patient will registered for diabetes group classes Patient Response to instructions: Comprehension of Instructions: Good Readiness to make changes:? Action How confident they feel about making changes:positve Portions of this note were created using voice recognition software, please excuse any words or phrases that may have been misinterpreted. Portions of this note were created using voice recognition software, please excuse any words or phrases that may have been misinterpreted. Patient Instructions: Patient instruction: CGM provides information on blood glucose control throughout the day, including hyperglycemia and hypoglycemia. ? Continue to monitor blood glucose as instructed. Follow nutrition guidelines provided. Report any discomfort promptly to health care provider. ?Stay well-hydrated. You can bathe ,shower, swim and exercise while wearing the glucose sensor. Do not submerge glucose sensor in water for more than 30 minutes. Coding Level of Care Code Est Pt Level 1 (68327) Diagnoses Uncontrolled type 2 diabetes mellitus with hyperglycemia E11.65
== END 2024-04-18 11:52 | disposition home or self-care (01) ==
PROVIDERS: PCP Internal Medicine; Visit Provider Registered Nurse Diabetes Educator
DX: E11.65 Type 2 diabetes mellitus with hyperglycemia (principal)

== ENCOUNTER → 2024-04-18 10:32 | Outpatient (BNVA) | payer BC, SELFPAY | PROVIDERS: PCP Internal Medicine; Visit Provider Dietitian, Registered | DX: E11.65 Type 2 diabetes mellitus with hyperglycemia (principal); Z71.3 Dietary counseling and surveillance | CPT/HCPCS: 97802; 99211 ==

== ENCOUNTER 2024-05-04 09:55 | Outpatient (AMB) | payer BC, SELFPAY ==
--- NOTE | 2024-05-04 12:33 | MHC.AMDMED ---
Intake Intake Visit Reasons: Type 2 DM Database Technician Required: No Accompanied by: Self / Same As Patient Allergies Unable to Assess Allergy (Verified 04/01/24 10:18) HPI Comprehensive Diabetes Asmnt Most Recent Diabetes Results: No Data to Display COUNTS INCLUDE 234 BEDS AT THE [facility] Medical History (Updated 04/01/24 @ 11:54 by Ashley Astudillo PA-C) Diabetic cataract of both eyes Uncontrolled type 2 diabetes mellitus with hyperglycemia Diabetes High blood pressure Surgical History (Updated 04/01/24 @ 10:20 by MADISON Eddy) History of bladder surgery H/O: hysterectomy Social History Household Members: None Housing: House Alcohol intake: never Patient Tobacco Use Status: Former Tobacco user Assessment & Plan Assessment & Plan (1) Uncontrolled type 2 diabetes mellitus with hyperglycemia: Code(s): E11.65 - Type 2 diabetes mellitus with hyperglycemia Plan: Class 1 DIABETES: CLASS? Your Journey with Diabetes ? Pre and Post class survey Your Journey with Diabetes ? 1=I needs full instruction?? 2= I Need Some Review? 3= I Understand Topics?? Before Class After Class 1 What is diabetes? Can you define in your own words 3 2 Blood glucose within the target range 3 2 The potential long-term complications of diabetes 3 2 Reduce the risk of long-term complications by keeping your blood glucose on target 3 1 Knowing your ABCs 3 2 Identifying Support Network 3 Patient was education on the prevention of and monitoring of potential complications of diabetes. Topics covered in today?s session included: . Definition of types of Diabetes ? Natural course of diabetes. ? Detecting and prevention of chronic complications. ? Knowing ABC's of diabetes management and reducing risk for cardiovascular complications. ? Reviewed support network and services. Patient was supplied with ABC and Screening checklist Patient was receptive to information provided and participated in the group discussion. Patient asked?appropriate questions and demonstrated good understanding of the topics discussed.? Patient found goals realistic and agreed to DM plan.? Over the course of DSMT program patient will identify the following goals relating to the ADCES 7 Healthy Behavior Worksheet: Patient was educated on diabetes care and skills according to the Standards of Care established by the [place] [employer] Portions of this note were created using voice recognition software, please excuse any words or phrases that may have been misinterpreted. Coding Level of Care Code Est Pt Level 1 (87357) Diagnoses Uncontrolled type 2 diabetes mellitus with hyperglycemia E11.65
== END 2024-05-04 12:55 | disposition home or self-care (01) ==
PROVIDERS: PCP Internal Medicine; Visit Provider Registered Nurse Diabetes Educator
DX: E11.65 Type 2 diabetes mellitus with hyperglycemia (principal)

== ENCOUNTER → 2024-05-04 09:55 | Outpatient (BNVA) | payer BC, SELFPAY | PROVIDERS: PCP Internal Medicine; Visit Provider Registered Nurse Diabetes Educator | DX: E11.65 Type 2 diabetes mellitus with hyperglycemia (principal) | CPT/HCPCS: 99211 ==

== ENCOUNTER 2024-05-11 10:01 | Outpatient (AMB) | payer BC, SELFPAY ==
--- NOTE | 2024-05-11 13:32 | MHC.AMDMED ---
Intake Intake Visit Reasons: Type 2 DM/lvm Sterilisation Technician Required: No Accompanied by: Self / Same As Patient Allergies Unable to Assess Allergy (Verified 04/01/24 10:18) HPI Comprehensive Diabetes Asmnt Most Recent Diabetes Results: No Data to Display [facility] Medical History (Updated 04/01/24 @ 11:54 by Ashley Astudillo PA-C) Diabetic cataract of both eyes Uncontrolled type 2 diabetes mellitus with hyperglycemia Diabetes High blood pressure Surgical History (Updated 04/01/24 @ 10:20 by MADISON Eddy) History of bladder surgery H/O: hysterectomy Social History Household Members: None Housing: House Alcohol intake: never Patient Tobacco Use Status: Former Tobacco user Assessment & Plan Assessment & Plan (1) Uncontrolled type 2 diabetes mellitus with hyperglycemia: Code(s): E11.65 - Type 2 diabetes mellitus with hyperglycemia Plan: Class 2 DIABETES: CLASS? Diabetes and Healthy Eating Pre and Post class survey Diabetes and Healthy Eating 1=I needs full instruction?? 2= I Need Some Review? 3= I Understand Topics?? Before Class After Class 2 The relationship between your blood glucose in the food you eat 1 2 Nutrients that make up food 1 2 How you eat, portion size, and when you eat can affect your blood glucose 1 2 Healthy eating and meal planning strategies 1 2 How you feel can have an influence on choices about the food 1 2 how to select and implement Smart Goal 1 Patient was education on the prevention of and monitoring of potential complications of diabetes. Topics covered in today?s session included: Feelings about food Food basics and what you eat which include: Description of Nutrients Food groups How much you eat, strategies for eating less When you eat, strategies for healthy eating Understanding food labels Food challenges and planning Going for your goals and your support network Pt was given Healthy Plate Handout, which includes carbohydrate list. Recommended using ADA Diabetes Foodhub for meal planning Patient was receptive to information provided and participated in the group discussion. Patient asked?appropriate questions and demonstrated good understanding of the topics discussed.? Patient found goals realistic and agreed to DM plan.? Over the course of DSMT program patient will identify the following goals relating to the ADCES 7 Healthy Behavior Worksheet Reviewed Healthy Behavior goal: Patient did not return goal sheet, goal for next visit to create smart goal Smart Goal Assessment:? Pt met goal 100% Pt met goal 75% Pt met goal 50% Pt met goal 25% Pt met goal less than 25% Patient was educated on diabetes care and skills according to the Standards of Care established by the [place] [employer] Portions of this note were created using voice recognition software, please excuse any words or phrases that may have been misinterpreted. Coding Level of Care Code Est Pt Level 1 (24140) Diagnoses Uncontrolled type 2 diabetes mellitus with hyperglycemia E11.65
== END 2024-05-11 11:50 | disposition home or self-care (01) ==
PROVIDERS: PCP Internal Medicine; Visit Provider Registered Nurse Diabetes Educator
DX: E11.65 Type 2 diabetes mellitus with hyperglycemia (principal)

== ENCOUNTER → 2024-05-11 10:01 | Outpatient (BNVA) | payer BC, SELFPAY | PROVIDERS: PCP Internal Medicine; Visit Provider Registered Nurse Diabetes Educator | DX: E11.65 Type 2 diabetes mellitus with hyperglycemia (principal) | CPT/HCPCS: 99211 ==

== ENCOUNTER 2024-05-15 17:20 | Emergency (ER) | payer BC, SELFPAY ==
[2024-05-15 17:28] VITALS: BP 144/120; PULSE 92; RESP 18; TEMP 36.6; O2SAT 93; BMI 27.8
--- NOTE | 2024-05-15 17:35 | ED.GENADULT ---
HPI - General Adult General Chief complaint: Wound/Laceration Stated complaint: finger infection Time Seen by Provider: 05/15/24 17:34 Source: patient Mode of arrival: ambulatory Limitations: no limitations History of Present Illness ED Provider: chanelle RIOS narrative: Patient is a 74-year-old female with history of T2 DM presenting to the emergency department with complaint of pain and swelling to left middle finger for the past 4 days. States she is not sure if she had a hang nail but now the area appears infected. Has been soaking in warm water. Denies discharge or drainage. Denies fevers. MD complaint: finger pain Onset (ago): day(s) Pain Consistency: constant Associated symptoms: denies other symptoms Treatments prior to arrival: other (warm water soaks) Related Data Home Medications ?Medication ?Instructions ?Recorded ?Confirmed atorvastatin 10 mg tablet 10 mg PO DAILY 06/09/23 04/01/24 blood sugar diagnostic (Accu-Chek #10 ea 06/09/23 04/01/24 Guide test strips) blood-glucose meter (Accu-Chek #1 ea 06/09/23 04/01/24 Guide Glucose Meter) lancets (Accu-Chek Softclix #100 ea 06/09/23 04/01/24 Lancets) metoprolol succinate 25 mg 25 mg PO DAILY 06/09/23 04/01/24 tablet,extended release 24 hr lisinopril 5 mg tablet 5 mg PO DAILY 04/01/24 04/01/24 Previous Rx's ?Medication ?Instructions ?Recorded clotrimazole-betamethasone 1 1 appl topical BID 5 days #45 grams 02/17/22 %-0.05 % topical cream blood-glucose meter,continuous #1 ea 04/01/24 (FreeStyle Agustina 3 [place]) metformin 500 mg tablet,extended 1,000 mg (2 x 500 mg) PO BID 90 04/05/24 release 24 hr days #360 tabs glipizide 5 mg tablet, extended 5 mg PO DAILY #90 tabs 04/20/24 release 24 hr blood-glucose sensor (FreeStyle #6 ea 05/12/24 Agustina 3 Sensor device) cephalexin 500 mg capsule 500 mg PO QID #27 caps 05/15/24 doxycycline hyclate 100 mg capsule 100 mg PO BID #13 caps 05/15/24 Allergies Allergy/AdvReac Type Severity Reaction Status Date / Time No Known Allergies Allergy Verified 05/15/24 17:31 Review of Systems Review of Systems: as per HPI Yes all other systems are reviewed and are negative Constitutional: Constitutional: Reports as per HPI [facility] Past Medical History Medical History (Updated 05/15/24 @ 17:36 by Dominique Claire NP) Diabetic cataract of both eyes Uncontrolled type 2 diabetes mellitus with hyperglycemia Diabetes High blood pressure Surgical History (Updated 04/01/24 @ 10:20 by MADISON Eddy) History of bladder surgery H/O: hysterectomy Social History Social History Household Members: None Housing: House Alcohol intake: never Patient Tobacco Use Status: Former Tobacco user Advance Directives: No Advance Directives Information Provided: Yes Do you have a plan to hurt others: No Plan Physical Exam ED Vital Signs: Vital Signs - 24 hr 05/15/24 17:28 05/15/24 17:36 05/15/24 17:42 Temperature 97.8 F 98.8 F Pulse Rate 92 81 81 Respiratory Rate 18 20 Blood Pressure 144/120 H 160/65 H 160/65 H Pulse Oximetry 93 100 Oxygen Delivery Method Room Air BMI result Body Mass Index 27.8 Vital signs have been reviewed and appear to be correct. Blood pressure elevated. Heart rate normal. Respiratory rate normal. Temperature normal. Oxygen saturation normal. Const General: cooperative, healthy appearing and no acute distress Orientation/consciousness: oriented to person, oriented to place, oriented to time and patient oriented x3 Limitations: no limitations [facility] Head: Yes normocephalic and Yes atraumatic Ears: external ears normal General nose exam: Normal external nose present Face and sinus: Yes face symmetric Mouth: oropharynx normal and moist mucous membranes Throat: Yes uvula midline Eyes Pupils: Equal, round and reactive pupils present Neck Neck: Yes normal visual inspection and Yes supple Resp Effort & Inspection: normal respiratory effort and able to speak in complete sentences Auscultation: clear to auscultation bilaterally Cardio Rate: regular rate Rhythm: regular rhythm Heart sounds: S1 normal heart sound present and S2 normal heart sound present GI Palpation (GI): Soft to palpation and nontender Auscultation: normoactive bowel sounds General: Yes no CVA tenderness Back/Spine/Pelvis Back: no CVA tenderness Skin General skin exam: elasticity normal and turgor normal Neuro General: oriented to person, oriented to place, oriented to time, patient oriented x3, moves all extremities, no focal motor deficits and CN's II-XI intact bilaterally Cranial nerves: Yes Equal, round and reactive pupils present Cognition (Neuro): normal cognition Extrem General: Yes full ROM, Yes no pedal edema and Yes no calf tenderness Hand/finger images: 1. pustule to nail fold with fluctuance, surrounding erythema Psych Mental Status: mental status grossly normal Affect: normal affect Thought process: Normal thought process present Medications Administered Discontinued Medications Generic Name Dose Route Start Last Admin Trade Name Rohanq PRN Reason Stop Dose Admin Cephalexin HCl 500 mg 05/15/24 17:36 05/15/24 17:41 Cephalexin 500 Mg Capsule PO 05/15/24 17:37 500 mg ONCE ONE Administration Doxycycline Monohydrate 100 mg 05/15/24 17:36 05/15/24 17:41 Doxycycline Monohydrate 100 Mg Capsule PO 05/15/24 17:37 100 mg ONCE ONE Administration Procedures Abscess I/D Site: hand Side (if applicable): left Sedation/analgesia: none Technique: needle aspiration Amount of fluid expressed (mL): 1 Sent for culture/gram staining?: No Irrigation: No Packing used?: none Medical Decision Making Medical Decision Making [facility] Narrative: Patient is a 74-year-old female with history of T2 DM presenting to the emergency department with complaint of pain and swelling to left middle finger for the past 4 days. On exam patient is awake, A+Ox3, BP elevated, VS otherwise WNL, afebrile, normal neurological exam without focal deficits, physical exam findings as above. Given reported symptoms and physical exam findings, initial differential includes paronychia, cellulitis. Do not suspect felon. Full ROM to PIP joint. Area drained as per procedure note. Patient advised to soak finger in warm water with salt several times daily. Will discharge patient home on doxycycline and Keflex. Erythema outlined in the emergency department and patient advised to return if the erythema spreads toward her hand. Follow-up with PCP. Return precautions discussed. Patient verbalized understanding of and agreement with plan. Differential Diagnosis Differential Diagnoses: The differential diagnosis associated with the presentation includes As per [facility] External Record Review External record reviewed: Inpatient record, Office record and Outpatient record Prescription Management I considered prescription management with: Antibiotic Chronic Conditions Patient?s care impacted by: Diabetes Discharge Plan Discharge Clinical Impression: Acute paronychia of finger of left hand Patient Disposition: Home, Self-Care Instructions: Paronychia (ED) Additional Instructions: You have been evaluated in the emergency department today for skin infection of your finger, also known as a paronychia. If the area of inflammation was outlined today in the ER, please return to the ER immediately if the area of redness increases beyond the border. Please take your prescribed antibiotics as directed for the full course of the medications. We also recommend soaking your finger in warm water with salt several times daily. You can use Tylenol or ibuprofen per package instructions every 6 hours as needed for pain. If necessary, you can alternate these medications so that you can take one medication every 3 hours. For instance, at noon take ibuprofen, then at 3:00 p.m. take Tylenol, then at 6:00 p.m. take ibuprofen. Please schedule an appointment for follow-up with your primary care physician as soon as possible. Return to the emergency department if you experience recurrent vomiting, fevers greater than 100.4? F, increasing area of redness, warmth around the area, foul-smelling discharge from the area, increased tenderness around the area, or any other concerning symptoms. Prescriptions: New cephalexin 500 mg capsule 500 mg PO QID Qty: 27 0RF doxycycline hyclate 100 mg capsule 100 mg PO BID Qty: 13 0RF No Action metformin 500 mg tablet extended release 24 hr 1,000 mg PO BID 90 Days Qty: 360 0RF glipizide 5 mg tablet extended release 24hr 5 mg PO DAILY Qty: 90 0RF (DME) FreeStyle Agustina 3 Sensor Device See Rx Instructions .ROUTE .MEDSUPPLY Qty: 6 3RF Rx Instructions: Apply every 14 days As directed clotrimazole-betamethasone 1-0.05 % cream 1 appl topical BID 5 Days Qty: 45 0RF metoprolol succinate 25 mg tablet extended release 24 hr 25 mg PO DAILY atorvastatin 10 mg tablet 10 mg PO DAILY (DME) blood-glucose meter [Accu-Chek Guide Glucose Meter] Misc See Rx Instructions .ROUTE DAILY Qty: 1 Rx Instructions: As directed (DME) Accu-Chek Guide test strips Strip See Rx Instructions .ROUTE .MEDSUPPLY Qty: 10 Rx Instructions: As directed (DME) lancets [Accu-Chek Softclix Lancets] Misc See Rx Instructions .ROUTE .MEDSUPPLY Qty: 100 Rx Instructions: As directed lisinopril 5 mg tablet 5 mg PO DAILY (DME) FreeStyle Agustina 3 [place] Misc See Rx Instructions .ROUTE .MEDSUPPLY Qty: 1 0RF Rx Instructions: As directed Interventions: ED Discharge Assessment Last Done: 05/15/24 17:42 Discharge Date/Time: 05/15/24 17:43 Print Language: Eritrean
[2024-05-15 17:36] VITALS: BP 160/65; PULSE 81
[2024-05-15] MEDS: Doxycycline Monohydrate 100 MG CAPSULE PO (17:41)
[2024-05-15] MEDS: cephALEXin 500 MG CAPSULE PO (17:41)
[2024-05-15 17:42] VITALS: BP 160/65; PULSE 81; RESP 20; TEMP 37.1; O2SAT 100
== END 2024-05-15 17:43 | disposition home or self-care (01) ==
PROVIDERS: Emergency Provider Emergency Medicine; PCP Internal Medicine
DX: L03.012 Cellulitis of left finger (principal); Z79.899 Other long term (current) drug therapy; Z87.891 Personal history of nicotine dependence
CPT/HCPCS: 99282

== ENCOUNTER 2024-05-18 09:49 | Outpatient (AMB) | payer BC, SELFPAY ==
--- NOTE | 2024-05-18 11:46 | A.OFFVIS_ITS ---
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 Accompanied by: Self / Same As Patient Allergies No Known Allergies Allergy (Verified 05/15/24 17:31) HPI Comprehensive Diabetes Asmnt Most Recent Diabetes Results: Creatinine 0.93 mg/dL (0.5-1.4) 01/02/22 Blood Urea Nitrogen 13 mg/dL (9-16) 01/02/22 Sodium 136 mmol/L (135-145) 01/02/22 Potassium 4.2 mmol/L (3.3-5.1) 01/02/22 Chloride 98 mmol/L (96-108) 01/02/22 Carbon Dioxide 25 mmol/L (22-29) 01/02/22 Calcium 9.6 mg/dL (8.4-10.2) 01/02/22 AST 25 U/L (5-31) 01/02/22 ALT 40 U/L (0-31) H 01/02/22 PFSH Medical History (Updated 05/16/24 @ 00:00 by Payton Loera) Diabetic cataract of both eyes Uncontrolled type 2 diabetes mellitus with hyperglycemia Diabetes High blood pressure Surgical History (Updated 04/01/24 @ 10:20 by MADISON Eddy) History of bladder surgery H/O: hysterectomy Social History Household Members: None Housing: House Alcohol intake: never Patient Tobacco Use Status: Former Tobacco user Assessment & Plan Assessment & Plan (1) Uncontrolled type 2 diabetes mellitus with hyperglycemia: Code(s): E11.65 - Type 2 diabetes mellitus with hyperglycemia Plan: DIABETES CLASS 3? Monitoring your Blood Glucose Pre and Post Class Survey Monitoring your blood glucose 1=I needs full instruction?? 2= I Need Some Review? 3= I Understand Topics?? Before Class After Class 2 Review of blood glucose and insulin 3 2 Blood glucose targets and how you feel when your blood glucose is in and out of the target ranges 3 2 Monitoring and knowing your A1c 3 2 What can make your blood glucose go up and down and preventing high and low blood glucose 3 2 Using your glucose results to manage your diabetes 3 Topics covered in today?s session included: ? What blood glucose and insulin are. ? Blood glucose targets and how you feel when your blood glucose is in and out of your target ranges. ? Monitoring and knowing your A1C. ? What can make blood glucose go up and down and preventing high and low blood glucose. ? Review of blood sugar targets in expected goal range and outside of expected goal range. ? Problem solving and preventing hyper/hypoglycemia. ? Sick day management of diabetes. ? Using blood sugar results in decision making process in managing diabetes. Emotional Health * Overview of diabetes, what it is, feelings about having it, and ways to manage it. * ?Myths & facts about diabetes * Blood sugar monitoring and expected blood sugar goals. * Management of diabetes with healthy eating, physical activity, and medications. Sick Day Guidelines * Fluids/meal plan * Medication/insulin * Monitor blood glucose * When to contact your doctor * Emergency planningExercise * Medical clearance * Effect of exercise on blood sugar * Start slowly and gradually increase pace/duration over time * Goal amount of exercise * Precautions * Checking blood glucose/have a source of carbs with you The patient was provided with the following written educational materials: On-going Support hand out, and Emergency checklist Patient was receptive to information provided and participated in the discussion. Patient asked?appropriate questions and demonstrated good understanding of the topics discussed.? SMART Goal patient will create list of healthy behaviors, and try and achieve 1 goal every week for 7 weeks Patient found goals realistic and agreed to DM plan. Patient was educated on diabetes care and skills according to the Standards of Care established by the [employer] Portions of this note were created using voice recognition software, please excuse any words or phrases that may have been misinterpreted. Coding Level of Care Code Est Pt Level 1 (53087) Diagnoses Uncontrolled type 2 diabetes mellitus with hyperglycemia E11.65
== END 2024-05-18 11:50 | disposition home or self-care (01) ==
PROVIDERS: PCP Internal Medicine; Visit Provider Registered Nurse Diabetes Educator
DX: E11.65 Type 2 diabetes mellitus with hyperglycemia (principal)

== ENCOUNTER → 2024-05-18 09:49 | Outpatient (BNVA) | payer BC, SELFPAY | PROVIDERS: PCP Internal Medicine; Visit Provider Registered Nurse Diabetes Educator | DX: E11.65 Type 2 diabetes mellitus with hyperglycemia (principal) | CPT/HCPCS: 99211 ==

== ENCOUNTER 2024-06-13 13:40 | Outpatient (AMB) | payer BC, SELFPAY ==
--- NOTE | 2024-06-13 14:01 | MHC.OFFVIS ---
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 No complaints. Last Pap/HPV was many years ago, the patient is status post hysterectomy with no history of abnormal Pap smears in the past Last Mammogram was BI-RADS 2 in 06/27 The patient has seen her GI last year who recommended no more colonoscopies Last DEXA scan was in 05/26 [facility] Medical History (Updated 05/16/24 @ 00:00 by Payton Loera) Diabetic cataract of both eyes Uncontrolled type 2 diabetes mellitus with hyperglycemia Diabetes High blood pressure Surgical History (Updated 04/01/24 @ 10:20 by MADISON Eddy) History of bladder surgery H/O: hysterectomy Social History Household Members: None Housing: House Alcohol intake: never Patient Tobacco Use Status: Former Tobacco user Female Reproductive History Menstrual Menopause type: surgical Date of Mammogram: 06/18/23 Review of Systems Const All systems reviewed & are unremarkable except as noted in HPI and below Card Reports as per HPI and Reports no additional complaints Resp Reports as per HPI and Reports no additional complaints GI Reports as per HPI and Reports no additional complaints Reports as per HPI Physical Exam Vital Signs: BMI result Body Mass Index 27.4 Const General: cooperative, healthy appearing and comfortable General: Yes bladder normal to palpation External Female Exam: No lesion Speculum Exam - Vagina: normal appearance of the vagina, normal vaginal discharge and not erythematous Speculum Exam - Cervix: Cervix absent Bimanual exam- vagina & uterus: bladder normal to palpation and uterus absent Bimanual Exam- Adnexa, other: Other (No masses detected) Assessment & Plan Assessment & Plan (1) Well woman exam: Code(s): Z01.419 - Encounter for gynecological examination (general) (routine) without abnormal findings Category: Medical Plan: Co testing not indicated since the patient is status post hysterectomy and has no history of abnormal Pap smear Counseled the patient about the recommended dietary allowance of 1200 mg of Calcium & 800 IU of vitamin D. Mammogram ordered. Will order DEXA scan . The patient was instructed to perform monthly self-breast exams and to schedule a 2 week DEXA scan follow-up appointment and an annual exam in a year; All questions answered and the patient verbalized understanding. Orders: Orders MM tomosynthesis screening BI Today Z12.31 - Encounter for screening mammogram for malignant neoplasm of breast XR DEXA axial skeleton Today Z78.0 - Asymptomatic menopausal state Coding Level of Care Code Est Pt Prev Care >65y(32194) Diagnoses Well woman exam Z01.419
[2024-06-13 14:02] VITALS: BP 120/62; BMI 27.4
== END 2024-06-13 14:25 | disposition home or self-care (01) ==
LOC: HO.HWS 13:40
PROVIDERS: PCP Internal Medicine; Visit Provider Obstetrics & Gynecology
DX: Z01.419 Encounter for gynecological examination (general) (routine) without abnormal findings (principal)
CPT/HCPCS: 99397

== ENCOUNTER → 2024-06-13 13:40 | Outpatient (BNVA) | payer BC, SELFPAY | PROVIDERS: PCP Internal Medicine; Visit Provider Obstetrics & Gynecology ==

== ENCOUNTER 2024-06-22 10:45 | Outpatient (REF) | payer BC, SELFPAY ==
--- NOTE | ~2024-06-22 | MM_ITS ---
EXAMINATION: MM SCREENING DIGITAL BREAST TOMOSYNTHESIS, BILATERAL CLINICAL INFORMATION: Screening. Asymptomatic. COMPARISON: Mammography: Comparison is made with available priors TECHNIQUE: Digital breast mammography with tomosynthesis is performed in both the craniocaudal and mediolateral oblique views along with computer-aided detection (CAD). FINDINGS: There are scattered areas of fibroglandular density (ACR BI-RADS breast composition Category b). There are no significant masses, abnormal calcifications, or other abnormalities. MM/MM tomosynthesis screening BI IMPRESSION: No mammographic evidence of malignancy. ASSESSMENT: BI-RADS BI-RADS 1 - Negative RECOMMENDATION: Routine annual mammography screening. 1 year F/U This examination should not preclude the clinical evaluation of a suspicious palpable abnormality. This patient's information was entered into a reminder system with a target due date for their next mammogram. Electronically signed by: Camille Richard DO 07/05/2024 04:21 PM EDT
== END 2024-06-22 10:46 | disposition home or self-care (01) ==
LOC: HO.MAMMO 10:45
PROVIDERS: PCP Internal Medicine; Visit Provider Internal Medicine
DX: Z12.31 Encounter for screening mammogram for malignant neoplasm of breast (principal)
CPT/HCPCS: 77063; 77067

== ENCOUNTER → 2024-06-22 11:00 | Outpatient (BNV) | payer BC, SELFPAY | PROVIDERS: PCP Internal Medicine; Visit Provider Internal Medicine | DX: Z12.31 Encounter for screening mammogram for malignant neoplasm of breast (principal) | CPT/HCPCS: 77063; 77067 ==

== ENCOUNTER 2024-07-01 10:45 | Outpatient (REF) | payer BC, SELFPAY ==
--- NOTE | ~2024-07-01 | MM_ITS ---
EXAMINATION: BONE DENSITOMETRY CLINICAL INDICATION: Menopause. COMPARISON: Baseline BD dated 05/20/2022. TECHNIQUE: Using a [employer] DXA System (software version: 13.1) manufactured by [employer], dual-energy x-ray absorptiometry was performed of the lumbar spine and left hip. The images are of good technical quality. Summary results are attached. FINDINGS: LEFT FEMUR, NECK: Current: BMD 0.956 g/cm2, Z-score 1.1, T-score -0.6, normal. Baseline: BMD 0.948 g/cm2. LEFT FEMUR, TOTAL: Current: BMD 1.021 g/cm2, Z-score 1.6, T-score 0.1, normal, 2.9% decrease from baseline (<5% change is not significant). Baseline: BMD 1.052 g/cm2. AP SPINE L1-L4: Current: BMD 1.308 g/cm2, Z-score 2.6, T-score 1.1, normal, 0.4% increase from baseline (<5% change is not significant). Baseline: BMD 1.303 g/cm2. IDENTIFIED RISK FACTORS: Early menopause, hysterectomy, low calcium intake, bilateral oophorectomy, secondary osteoporosis. HISTORY OF FRACTURE: None listed. MEDICATIONS: Multivitamin, vitamin D. MM/XR DEXA axial skeleton IMPRESSION: 1. DIAGNOSIS: Normal bone density based on the lowest T-score value of -0.6 in the femoral neck applying World Health Organization criteria. 2. 10-YEAR FRACTURE RISK PREDICTION, FRAX: According to the guidelines, FRAX calculation should only be performed on patients in the osteopenia bone density category. Therefore, FRAX was not performed on this patient. 3. Treatment Recommendations: NOF guidelines recommend consideration for treatment in postmenopausal women and men age 50 and older presenting with the following: -A hip or vertebral (clinical or morphometric) fracture. -T-score less than or equal to -2.5 at the femoral neck or spine after appropriate evaluation to exclude secondary causes. -Low bone mass at the hip or spine and a 10-year fracture probability by FRAX of greater than or equal to 3% for hip fracture or greater than or equal to 20% for major osteoporotic fracture based on the [place] adapted WHO algorithm. 4. Other Recommendations: All treatment decisions require clinical judgment and consideration of individual patient factors, including patient preferences, comorbidities, previous drug use, risk factors not captured in the FRAX model (e.g. frailty, falls, vitamin D deficiency, increased bone turnover, interval significant decline in bone density) and possible under or overestimation of fracture risk by FRAX. FUTURE SCAN RECOMMENDATION: People with diagnosed cases of osteoporosis or at high risk for fracture should have regular bone mineral density tests. For patients eligible for Medicare, routine testing is allowed once every 2 years. The testing frequency can be increased to one year for patients who have rapidly progressing disease, those who are receiving or discontinuing medical therapy to restore bone mass, or have additional risk factors. Electronically signed by: Jose Luis Goncalves MD 07/13/2024 03:43 PM EDT RP
== END 2024-07-01 10:46 | disposition home or self-care (01) ==
LOC: HO.MAMMO 10:45
PROVIDERS: PCP Internal Medicine; Visit Provider Obstetrics & Gynecology
DX: Z13.820 Encounter for screening for osteoporosis (principal); Z78.0 Asymptomatic menopausal state
CPT/HCPCS: 77080

== ENCOUNTER 2024-07-08 10:57 | Outpatient (AMB) | payer BC, SELFPAY ==
[2024-07-08 11:02] VITALS: BP 140/66; PULSE 95; BMI 30.7
--- NOTE | 2024-07-08 11:02 | MHC.OFFVIS ---
Vital Signs 07/08/24 11:02 Height 5 ft 2 in Weight 167 lb 12.348 oz BMI 30.7 BP 140/66 H Blood Pressure Location Rt brachial Position Sitting Pulse 95 Pulse Source Pulse Oximeter Intake Visit Reasons: T2DM/CONFIRMED Intake Note: Patient presents today for D2MT follow up visit. Last Diabetic Eye exam: 03/2024 Last Podiatry Visit: Doesn't have one Random Glucose: 189 mg/dl HgA1c: 7.8% Litigation Secretary Required: No Accompanied by: Daughter Allergies No Known Allergies Allergy (Verified 07/08/24 11:08) Medication List - Last Reconciled 07/08/24 by Ashley Astudillo PA-C atorvastatin 10 mg PO DAILY blood sugar diagnostic (Accu-Chek Guide test strips) As directed blood-glucose meter (Accu-Chek Guide Glucose Meter) As directed blood-glucose meter,continuous (FreeStyle Agustina 3 [place]) As directed blood-glucose sensor (FreeStyle Agustina 3 Sensor device) Apply every 14 days As directed clotrimazole-betamethasone 1-0.05 % 1 appl topical BID 5 days glipizide ER 5 mg PO BID 90 days lancets (Accu-Chek Softclix Lancets) As directed lisinopril 5 mg PO DAILY metformin ER 1,000 mg (2 x 500 mg) PO BID 90 days metoprolol succinate ER 25 mg PO DAILY HPI HPI T2DM/CONFIRMED: Details: Patient is a 74-year-old female with a significant past medical history of hypertension, hyperlipidemia, type 2 diabetes, and osteopenia presenting today for a diabetic consult. She is accompanied today by her daughter. Endo: Her last A1c was 8. Today her A1c is 7.8. She is currently on metformin 1000 mg in the evening and 500 in the morning, glipizide 10 mg. At our last visit we did discontinue the Jardiance due to frequent UTIs. She did notice when she stopped the Jardiance she had some improvement her urinary frequency. Has not had a UTI. CGM-Agustina 3 download shows usage 91%, average glucose 158, GMI 7.1%, deviation 29.5%. Very hyperglycemic 4%, hyperglycemic 26%, in range 70%, 0% hypoglycemia. -she likes having a CGM but has had to pay [id number] for this. She does not understand why because she is afraid of needles and does not like to use the glucometer. She also has a harder time seeing sometimes with her cataracts. Her last eye exam was 02/25 and she states that she was diagnosed with cataracts. This is her 1st eye exam in about 40 years. She does not see a audience development manager but sometimes gets tingling in her feet. Niece has thyroid cancer. CV: Her blood pressure today in the office is 140/66. States that her blood pressures are normally normal but she is nervous here today. She is on lisinopril 5 mg, metoprolol 25 mg. Cholesterol is managed with atorvastatin 10 mg. Uro: She has OAB. She recently trialed botox. [facility] Medical History Diabetic cataract of both eyes Uncontrolled type 2 diabetes mellitus with hyperglycemia Diabetes High blood pressure Surgical History History of bladder surgery H/O: hysterectomy Social History Household Members: None Housing: House Alcohol intake: never Patient Tobacco Use Status: Former Tobacco user Physical Exam Vital Signs: Last Vital Signs Pulse 95 07/08/24 11:02 BP 140/66 H 07/08/24 11:02 BMI result Body Mass Index 30.7 Const Orientation/consciousness: patient oriented x3 Neck Neck: Yes no lymphadenopathy Thyroid: Thyroid normal Carotids: no bruits Resp Auscultation: clear to auscultation bilaterally Cardio Rate: regular rate Rhythm: regular rhythm Heart sounds: S1 normal heart sound present and S2 normal heart sound present Peripheral pulses: dorsalis pedis present Neuro General: patient oriented x3, gait normal and no focal motor deficits Extrem General: Yes normal to inspection Office Procedures Glucose Monitoring Details Details: See [facility] [address] - Glucose monitoring, continuous-physician I&R Procedure code (CPT) selection complete Results AMB Hemoglobin A1c AMB Hemoglobin A1c 7.8 % Last Edit by MADISON Eddy on 07/08/24 11:24 Results Reviewed Results Reviewed: Laboratory Last Values Glucose (Clinic) 189 mg/dL (60-115) H 07/08/24 11:12 Laboratory Tests 04/01/24 04/01/24 10:21 11:28 Glucose (Clinic) 142 H Hgb A1c (Clinic) 8.0 H Assessment & Plan Assessment & Plan (1) Uncontrolled type 2 diabetes mellitus with hyperglycemia: Code(s): E11.65 - Type 2 diabetes mellitus with hyperglycemia Category: Medical Plan: We will increase metformin. Continue glipizide. (2) Needle phobia: Code(s): F40.298 - Other specified phobia Category: Medical Plan: CGM ordered. Did discuss that it is possible her insurance may not cover this if she is not on insulin. They will call the insurance company and let me know. Orders: Orders AMB Hemoglobin A1c Today E11.65 - Type 2 diabetes mellitus with hyperglycemia, Z13.9 - Encounter for screening, unspecified Medications: New glucose (Dex4 Glucose) until symptoms of low blood sugar are controlled 16 grams (4 x 4 gram) PO Q15M PRN 100 tabs 0RF hypoglycemia Changed From glipizide ER 10 mg (2 x 5 mg) PO DAILY 90 tabs 0RF To glipizide ER 5 mg PO BID 90 days 180 tabs 0RF From glipizide ER 5 mg PO DAILY 90 tabs 0RF To glipizide ER 10 mg (2 x 5 mg) PO DAILY 90 tabs 0RF Refilled blood-glucose sensor (FreeStyle Agustina 3 Sensor device) Apply every 14 days As directed 6 ea 3RF E11.36 - Type 2 diabetes mellitus with diabetic cataract, E11.65 - Type 2 diabetes mellitus with hyperglycemia, F40.298 - Other specified phobia Coding Level of Care Code Est Pt Level 4 (07320) Diagnoses Uncontrolled type 2 diabetes mellitus with hyperglycemia E11.65 Needle phobia F40.298 CPT Codes Details - CPT: 23772 - Glucose monitoring, continuous-physician I&R ([id number])
[2024-07-08 11:16] LABS: Glucose, Whole Blood 189 mg/dL (60-115)
== END 2024-07-08 11:52 | disposition home or self-care (01) ==
PROVIDERS: PCP Internal Medicine; Visit Provider Physician Assistant
DX: E11.65 Type 2 diabetes mellitus with hyperglycemia (principal); F40.298 Other specified phobia; Z13.9 Encounter for screening, unspecified

== ENCOUNTER → 2024-07-08 10:57 | Outpatient (BNVA) | payer BC, SELFPAY | PROVIDERS: PCP Internal Medicine; Visit Provider Physician Assistant | DX: E11.65 Type 2 diabetes mellitus with hyperglycemia (principal); F40.298 Other specified phobia; Z79.84 Long term (current) use of oral hypoglycemic drugs | CPT/HCPCS: 82947; 83036 ==

== ENCOUNTER 2024-08-29 14:18 | Outpatient (AMB) | payer BC, SELFPAY ==
--- NOTE | 2024-08-29 14:26 | A.OFFVIS_ITS ---
Intake Visit Reasons: DEXA Follow up/Do not reschedule Manager Product Marketing: Manager Product Marketing Present (Elsa) Accompanied by: Self / Same As Patient Allergies No Known Allergies Allergy (Verified 08/29/24 14:26) HPI Comments Details: The patient is presenting for follow up regarding DEXA scan results. T score @ spine and femoral Neck respectively were=1.1 /-0.6 and 10 year FRAX risk for severe osteoporosis and fracture was not computed. PFS Medical History Diabetic cataract of both eyes Uncontrolled type 2 diabetes mellitus with hyperglycemia Diabetes High blood pressure Surgical History History of bladder surgery H/O: hysterectomy Social History Household Members: None Housing: House Alcohol intake: never Patient Tobacco Use Status: Former Tobacco user Review of Systems Const All systems reviewed & are unremarkable except as noted in HPI and below Reports as per HPI and Reports no additional complaints GI Reports no additional complaints Reports no additional complaints Assessment & Plan Assessment & Plan (1) Osteopenia: Code(s): M85.80 - Other specified disorders of bone density and structure, unspecified site Category: Medical Plan: Discussed with the patient the DEXA results, T score showed no evidence of osteoporosis. Discussed with the patient all the options for osteoporosis prevention including lifestyle modifications including Ca+D supplements 1200 mg po qd/800 MIU, Weight bearing exercises and proteine supplements. The patient verbalized understanding and agreed plan will repeat DEXA in 2 years. Coding Level of Care Code Est Pt Level 3 (21298) Diagnoses Osteopenia M85.80
== END 2024-08-29 14:31 | disposition home or self-care (01) ==
LOC: HO.HWS 14:19
PROVIDERS: PCP Internal Medicine; Visit Provider Obstetrics & Gynecology
DX: M85.80 Other specified disorders of bone density and structure, unspecified site (principal)
CPT/HCPCS: 99213

== ENCOUNTER 2024-10-14 14:56 | Outpatient (AMB) | payer BC, SELFPAY ==
[2024-10-14 15:03] VITALS: BP 124/76; PULSE 72; BMI 29.4
--- NOTE | 2024-10-14 15:03 | A.OFFVIS_ITS ---
Vital Signs 10/14/24 15:03 Height 5 ft 2 in Weight 160 lb 14.999 oz BMI 29.4 BP 124/76 Blood Pressure Location Rt brachial Position Sitting Pulse 72 Pulse Source Pulse Oximeter Intake Visit Reasons: T2DM/Confirmed Intake Note: Patient presents today for a follow-up on Type 2 Diabetes Mellitus: Last Diabetic eye exam was on: 03/05/2024 Last Podiatry exam was on: Patient does not see a General Internal Medicine Physician Most recent HbA1c: 7.3%, 10/09/2024 Random Glucose- 122 mg/dL, Today Product/Industry Consultant Required: No Accompanied by: Daughter Allergies No Known Allergies Allergy (Verified 10/14/24 15:05) Medication List - Last Reconciled 10/14/24 by Ashley Astudillo PA-C atorvastatin 10 mg PO DAILY blood sugar diagnostic (Accu-Chek Guide test strips) As directed blood-glucose meter (Accu-Chek Guide Glucose Meter) As directed blood-glucose meter,continuous (FreeStyle Agustina 3 [place]) As directed blood-glucose sensor (FreeStyle Agustina 3 Sensor device) Apply every 14 days As directed clotrimazole-betamethasone 1-0.05 % 1 appl topical BID 5 days glucose (Dex4 Glucose) 16 grams (4 x 4 gram) PO Q15M PRN lancets (Accu-Chek Softclix Lancets) As directed lisinopril 5 mg PO DAILY metformin ER 1,000 mg (2 x 500 mg) PO BID 90 days metoprolol succinate ER 25 mg PO DAILY HPI HPI T2DM/Confirmed: Details: Patient is a 74-year-old female with a significant past medical history of hypertension, hyperlipidemia, type 2 diabetes, and osteopenia presenting today for a diabetic consult. She is accompanied today by her daughter. Endo: Today her A1c is 7.3. She is currently on metformin 1000 mg in the evening and 500 in the morning. She recently stopped the glipizide due to hypoglycemia. She has had somewhat of a reduced appetite and has lost about 7 lb. She is currently undergoing a lung cancer workup. She is going for a biopsy next week and we will be meeting with a medical oncologist and radiation oncologist. At our last visit we did discontinue the Jardiance due to frequent UTIs. She did notice when she stopped the Jardiance she had some improvement her urinary frequency. Has not had a UTI. CGM-Agustina 3 download shows usage 48%, average glucose 169, GMI 7.4%, deviation 29.5%. Very hyperglycemic 6%, hyperglycemic 25%, in range 69%, 0% hypoglycemia. -she likes having a CGM but has had to pay [id number] for this. She does not understand why because she is afraid of needles and does not like to use the glucometer. She also has a harder time seeing sometimes with her cataracts. Her last eye exam was 02/25 and she states that she was diagnosed with cataracts. This is her 1st eye exam in about 40 years. She does not see a pit hand but sometimes gets tingling in her feet. Niece has thyroid cancer. CV: Her blood pressure today in the office is 124/76. She is on lisinopril 5 mg, metoprolol 25 mg. Cholesterol is managed with atorvastatin 10 mg. Uro: She has OAB. She recently trialed botox. ON LICENSE OF [facility] Medical History Diabetic cataract of both eyes Uncontrolled type 2 diabetes mellitus with hyperglycemia Diabetes High blood pressure Surgical History History of bladder surgery H/O: hysterectomy Social History Household Members: None Housing: House Alcohol intake: never Patient Tobacco Use Status: Former Tobacco user Physical Exam Vital Signs: Last Vital Signs Pulse 72 10/14/24 15:03 BP 124/76 10/14/24 15:03 BMI result Body Mass Index 29.4 Const Orientation/consciousness: patient oriented x3 HEENT Ears: hearing grossly normal bilaterally Neck Thyroid: Thyroid normal Lymphatic: no lymphadenopathy noted Resp Auscultation: clear to auscultation bilaterally Cardio Rate: regular rate Rhythm: regular rhythm Heart sounds: S1 normal heart sound present and S2 normal heart sound present Skin General skin exam: no rashes or lesions noted Neuro General: patient oriented x3, gait normal and no focal motor deficits Results AMB Hemoglobin A1c AMB Hemoglobin A1c 7.3 % Last Edit by MADISON Barajas on 10/14/24 15:24 Results Reviewed Results Reviewed: Laboratory Last Values Glucose (Clinic) 122 mg/dL (60-115) H 10/14/24 15:09 Assessment & Plan Assessment & Plan (1) Uncontrolled type 2 diabetes mellitus with hyperglycemia: Code(s): E11.65 - Type 2 diabetes mellitus with hyperglycemia Category: Medical Plan: We will try metformin 1000 mg twice a day. She will let me know if her stomach does not tolerate this. She will continue with the CGM to monitor what she is eating and how her blood sugars respond. As she undergoes the cancer workup and possible treatment she will let me know how her blood sugars are. If she needs to be seen sooner than 3 months she will call me. Otherwise, we will plan to return for follow up in 3 months. Patient understands and agrees with this plan. (2) Diabetic cataract of both eyes: Code(s): E11.36 - Type 2 diabetes mellitus with diabetic cataract Category: Medical Plan: Following with Ophthalmology. Orders: Orders AMB Hemoglobin A1c Today E11.65 - Type 2 diabetes mellitus with hyperglycemia Medications: Discontinued glipizide ER Discontinued Reason: Doctor's Order 5 mg PO BID 90 days 180 tabs 3RF Coding Level of Care Code Est Pt Level 4 (39899) Diagnoses Uncontrolled type 2 diabetes mellitus with hyperglycemia E11.65 Diabetic cataract of both eyes E11.36
[2024-10-14 15:12] LABS: Glucose, Whole Blood 122 mg/dL (60-115)
== END 2024-10-14 15:41 | disposition home or self-care (01) ==
PROVIDERS: PCP Internal Medicine; Visit Provider Physician Assistant
DX: E11.65 Type 2 diabetes mellitus with hyperglycemia (principal); E11.36 Type 2 diabetes mellitus with diabetic cataract

== ENCOUNTER → 2024-10-14 14:56 | Outpatient (BNVA) | payer BC, SELFPAY | PROVIDERS: PCP Internal Medicine; Visit Provider Physician Assistant | DX: E11.65 Type 2 diabetes mellitus with hyperglycemia (principal); E11.36 Type 2 diabetes mellitus with diabetic cataract; H26.9 Unspecified cataract | CPT/HCPCS: 82947; 83036 ==

== ENCOUNTER 2025-01-13 11:33 | Outpatient (AMB) | payer MEDICARE, BC, SELFPAY ==
--- NOTE | 2025-01-13 11:36 | A.OFFVIS_ITS ---
Vital Signs 01/13/25 11:37 Height 5 ft 2 in Weight 160 lb BMI 29.3 BP 130/70 Blood Pressure Location Rt brachial Position Sitting Pulse 107 H Pulse Source Pulse Oximeter Pulse Oximetry (%) 95 Oxygen Delivery Method Room Air Intake Visit Reasons: dm Intake Note: Patient present today to follow up on Type 2 Diabetes Mellitus. Last Diabetic Eye exam: 03/05/2024 has appt 03/2025 Last Podiatry Visit: Does not see a Gauge Maker Apprentice Random Glucose: 249 mg/dl HgA1C: DUE Accompanied by: Daughter Allergies No Known Allergies Allergy (Verified 01/13/25 11:41) Medication List - Last Reconciled 01/13/25 by Ashley Astudillo PA-C atorvastatin 10 mg PO DAILY blood sugar diagnostic (Accu-Chek Guide test strips) As directed blood-glucose meter (Accu-Chek Guide Glucose Meter) As directed blood-glucose sensor (FreeStyle Agustina 3 Sensor device) Apply every 14 days As directed blood-glucose,ground control approach technician,cont (FreeStyle Agustina 3 [place]) As directed dulaglutide (Trulicity) 0.75 mg (0.5 mL) subcut QWEEK lancets (Accu-Chek Softclix Lancets) As directed lisinopril 5 mg PO DAILY metformin ER 1,000 mg (2 x 500 mg) PO BID 90 days metoprolol succinate ER 25 mg PO DAILY HPI HPI dm: Details: Patient is a 74-year-old female with a significant past medical history of hypertension, hyperlipidemia, type 2 diabetes, and osteopenia presenting today for a diabetic consult. She is accompanied today by her daughter. Endo: Today her A1c is 7.5. She is currently on metformin 1000 mg in the morning and 500 in the evening. She recently stopped the glipizide due to hypoglycemia. She has had somewhat of a reduced appetite and has lost about 7 lb. She is currently undergoing treatment for lung cancer. At our last visit we did discontinue the Jardiance due to frequent UTIs. She did notice when she stopped the Jardiance she had some improvement her urinary frequency. Has not had a UTI. -she likes having a CGM but has had to pay [id number] for this. She does not understand why because she is afraid of needles and does not like to use the glucometer. She also has a harder time seeing sometimes with her cataracts. Her last eye exam was 02/25 and she states that she was diagnosed with cataracts. This is her 1st eye exam in about 40 years. She does not see a electric refrigerator servicer but sometimes gets tingling in her feet. CV: Her blood pressure today in the office is 130/70. She is on lisinopril 5 mg, metoprolol 25 mg. Cholesterol is managed with atorvastatin 10 mg. Uro: She has OAB. She recently trialed botox. [facility] Medical History Lung cancer Diabetic cataract of both eyes Uncontrolled type 2 diabetes mellitus with hyperglycemia Diabetes High blood pressure Surgical History History of bladder surgery H/O: hysterectomy Social History Household Members: None Housing: House Alcohol intake: never Patient Tobacco Use Status: Former Tobacco user Physical Exam Vital Signs: Last Vital Signs Pulse 107 H 01/13/25 11:37 BP 130/70 01/13/25 11:37 Pulse Ox 95 01/13/25 11:37 Oxygen Delivery Method Room Air 01/13/25 11:37 BMI result Body Mass Index 29.3 Const Orientation/consciousness: patient oriented x3 Neck Neck: Yes no lymphadenopathy Thyroid: Thyroid normal Carotids: no bruits Resp Auscultation: clear to auscultation bilaterally Cardio Rate: regular rate Rhythm: regular rhythm Heart sounds: S1 normal heart sound present and S2 normal heart sound present Peripheral pulses: dorsalis pedis present Neuro General: patient oriented x3, gait normal and no focal motor deficits Extrem Other: Monofilament sensation diminished on the left. Intact on the right. Vibratory not present on the left. Vibratory sensation intact on the right. Skin intact. General: Yes normal to inspection Assessment & Plan Assessment & Plan (1) Uncontrolled type 2 diabetes mellitus with hyperglycemia: Code(s): E11.65 - Type 2 diabetes mellitus with hyperglycemia Category: Medical Plan: Continue metformin. We will start Trulicity. We discussed risks and benefits and adverse effects of this medication. (2) High blood pressure: Code(s): I10 - Essential (primary) hypertension Category: Medical Qualifiers: Hypertension type: primary hypertension Qualified Code(s): I10 - Essential (primary) hypertension Plan: Continue current regimen Medications: New dulaglutide (Trulicity) 0.75 mg (0.5 mL) subcut QWEEK 2 mL 4RF Coding Level of Care Code Est Pt Level 4 (66579) Complex EM visit Add On G2211 Diagnoses Uncontrolled type 2 diabetes mellitus with hyperglycemia E11.65 Primary hypertension I10 Hypertension type: primary hypertension
[2025-01-13 11:37] VITALS: BP 130/70; PULSE 107; O2SAT 95; BMI 29.3
[2025-01-13 11:51] LABS: Glucose, Whole Blood 147 mg/dL (60-115)
--- OUTSIDE RECORDS SUMMARY | 2025-01-13 12:35 | XMS_ITS | Clinical Summary ---
Author Organization [address] [facility] Address [address] [place] [address] Phone Care Team Providers Care I O Psychologist Name Role Phone Unavailable Primary Care Provider Unavailabl e Encounters Date Type Department Care Team Description 12/07/2024 Lab Requisition [facility] - Main Lab [address] [facility] [place] [address] Woodrwo Sommers MD Urinary tract infection, site not specified from Last 3 Months Social History Tobacco Use Types Packs/Day Years Used Date Smoking Tobacco: Never Assessed Comments Unknown Sex and Gender Information Value Date Recorded Sex Assigned at Not on file Legal Sex Female 2:38 PM EST Gender Identity Not on file Sexual Orientation Not on file Plan of Treatment Health Maintenance Due Date Last Done Comments Breast Cancer Screening 1950 DTaP,Tdap,and Td Vaccines (1 - Tdap) 1969 Pneumococcal Vaccine: 50+ Ye ars (1 of 1 - PCV) 2000 Zoster Vaccines (1 of 2) 2000 COVID-19 Vaccine ( - 2023-2 5 season) 2024 Influenza Vaccine (#1) 2024 Colorectal Cancer Screening: Colonoscopy 12/08/2024 Depression Screening 12/08/2024 Falls Risk Assessment 12/08/2024 Hepatitis C Screening 12/08/2024 Medicare Annual Wellness Visit 12/08/2024 Osteoporosis Screening (Bone Density Screening) 12/08/2024 Social Influencers of Health Screening 12/08/2024 RSV Immunization Adult Patie nts (1 - 1-dose 75+ series) 2025 HIB Vaccines Aged Out No longer eligi ble based on patient's age to complete this topic HPV Vaccines Aged Out No longer eligi ble based on patient's age to complete this topic Hepatitis A Vaccines Aged Out No long er eligible based on patient's age to complete this topic Hepatitis B Vaccines Aged Out No long er eligible based on patient's age to complete this topic IPV Vaccines Aged Out No longer eligi ble based on patient's age to complete this topic MMR Vaccines Aged Out No longer eligi ble based on patient's age to complete this topic Meningococcal ACWY Vaccine Aged Out N o longer eligible based on patient's age to complete this topic Meningococcal B Vaccine Aged Out No l onger eligible based on patient's age to complete this topic RSV Immunization Patients Un mag 20 months Aged Out No longer eligible b ased on patient's age to complete this topic Varicella Vaccines Aged Out No longer eligible based on patient's age to complete this topic Procedures Procedure Name Priority Date/Time Associated Diagnosis Comments CULTURE URINE Routine 12/07/2024 12:00 AM EST Urinary tract infection, site not specified from Last 3 Months Results * Culture urine (12/07/2024 12:00 AM EST) Culture, Urine No growth 12/09/2024 1:19 PM EST [facility] Urine Urine specimen obtained by clean catch procedure / Unknown 12/07/2024 12/07/2024 2:50 PM EST Woodrow Sommers MD LAB MICROBIOLOGY - GENERA L ORDERABLES Final Result [facility] [address] [place] [address], from Last 3 Months Insurance MEDICARE
--- OUTSIDE RECORDS SUMMARY | 2025-01-13 12:35 | XMS_ITS | Encounter Summary ---
Author Organization [facility] Address [address] [place] [address] Care Team Providers Care Accounts Supervisor Name Role Phone Unavailable Primary Care Provider Unavailabl e Encounter Details Date Type Department Care Team (Late st Contact Info) Description 12/07/2024 Lab Requisition [facility] - Main Lab [address] [place] [phone] [facility]mers [facility] [address] [place] [phone] Urinary tract infection, site not specified Social History Tobacco Use Types Packs/Day Years Used Date Smoking Tobacco: Never Assessed Comments Unknown Sex and Gender Information Value Date Recorded Sex Assigned at Not on file Legal Sex Female 2:38 PM EST Gender Identity Not on file Sexual Orientation Not on file documented as of this encounter Plan of Treatment Not on file documented as of this encounter Procedures Procedure Name Priority Date/Time Associated Diagnosis Comments CULTURE URINE Routine 12/07/2024 12:00 AM EST Urinary tract infection, site not specified documented in this encounter Results * Culture urine (12/07/2024 12:00 AM EST) Culture, Urine No growth 12/09/2024 1:19 PM EST [facility] Urine Urine specimen obtained by clean catch procedure / Unknown 12/07/2024 12/07/2024 2:50 PM EST Woodrow Sommers MD LAB MICROBIOLOGY - GENERA L ORDERABLES Final Result [facility] [address] [place] [address], documented in this encounter Visit Diagnoses Diagnosis Urinary tract infection, site not specified documented in this encounter
== END 2025-01-13 12:25 | disposition home or self-care (01) ==
LOC: HO.ENCR 11:34
PROVIDERS: PCP Internal Medicine; Visit Provider Physician Assistant
DX: E11.65 Type 2 diabetes mellitus with hyperglycemia (principal); I10 Essential (primary) hypertension

== ENCOUNTER → 2025-01-13 11:33 | Outpatient (BNVA) | payer MEDICARE, BC, SELFPAY | PROVIDERS: PCP Internal Medicine; Visit Provider Physician Assistant | DX: E11.65 Type 2 diabetes mellitus with hyperglycemia (principal); I10 Essential (primary) hypertension | CPT/HCPCS: 82947; 83036; 99212 ==

== ENCOUNTER 2025-04-17 11:24 | Outpatient (AMB) | payer MEDICARE, BC, SELFPAY ==
--- NOTE | 2025-04-17 11:26 | MHC.OFFVIS ---
Vital Signs 04/17/25 11:28 Height 5 ft 2 in Weight 155 lb 13.869 oz BMI 28.5 BP 110/60 Blood Pressure Location Rt brachial Position Sitting Pulse 97 Pulse Source Pulse Oximeter Pulse Oximetry (%) 95 Oxygen Delivery Method Room Air Intake Visit Reasons: T2DM Intake Note: Patient present today for Type 2 Diabetes Mellitus Last Diabetic eye exam04/2025 Last Podiatry Visit: does not see one Random Glucose:153 mg/dl HgA1C: Due Allergies No Known Allergies Allergy (Verified 04/17/25 11:31) Medication List - Last Reconciled 04/17/25 by Ashley Astudillo PA-C atorvastatin 10 mg PO DAILY blood sugar diagnostic (Accu-Chek Guide test strips) Use to check blood glucose 2 x a day As directed blood-glucose meter (Accu-Chek Guide Glucose Meter) As directed blood-glucose sensor (FreeStyle Agustina 3 Sensor device) Apply every 14 days As directed blood-glucose,card folder,cont (FreeStyle Agustina 3 [place]) As directed lancets (Accu-Chek Softclix Lancets) Use check blood glucose BID As directed lisinopril 5 mg PO DAILY metformin ER 1,500 mg (3 x 500 mg) PO DAILY 90 days metoprolol succinate ER 25 mg PO DAILY HPI HPI T2DM: Details: Patient is a 75-year-old female with a significant past medical history of hypertension, hyperlipidemia, type 2 diabetes, and osteopenia presenting today for a diabetic consult. She is accompanied today by her daughter. Endo: Today her A1c is 7. She is currently on metformin 1000 mg in the morning and 500 in the evening. At our last visit we discussed starting Trulicity 0.75 mg weekly. She says that she did not end up taking this because of the potential side effects. She wanted to wait to see how her body would adjust following chemo. he recently stopped the glipizide due to hypoglycemia, Jardiance cause frequent UTIs Her last eye exam was 02/25 and she states that she was diagnosed with cataracts. This is her 1st eye exam in about 40 years. She does not see a dictating machine mechanic but sometimes gets tingling in her feet. CV: Her blood pressure today in the office is 110/60. She is on lisinopril 5 mg, metoprolol 25 mg. Cholesterol is managed with atorvastatin 10 mg. Uro: She has OAB. She recently trialed botox. [facility] Medical History Lung cancer Diabetic cataract of both eyes Uncontrolled type 2 diabetes mellitus with hyperglycemia Diabetes High blood pressure Surgical History History of bladder surgery H/O: hysterectomy Social History Household Members: None Housing: House Alcohol intake: never Patient Tobacco Use Status: Former Tobacco user Physical Exam Vital Signs: Last Vital Signs Pulse 97 04/17/25 11:28 BP 110/60 04/17/25 11:28 Pulse Ox 95 04/17/25 11:28 Oxygen Delivery Method Room Air 04/17/25 11:28 BMI result Body Mass Index 28.5 Const Orientation/consciousness: patient oriented x3 HEENT Ears: hearing grossly normal bilaterally Neck Thyroid: Thyroid normal Lymphatic: no lymphadenopathy noted Resp Auscultation: clear to auscultation bilaterally Cardio Rate: regular rate Rhythm: regular rhythm Heart sounds: S1 normal heart sound present and S2 normal heart sound present Skin General skin exam: no rashes or lesions noted Neuro General: patient oriented x3, gait normal and no focal motor deficits Results AMB Hemoglobin A1c AMB Hemoglobin A1c 7.0 % Last Edit by MADISON Eddy on 04/17/25 11:58 Assessment & Plan Assessment & Plan (1) Uncontrolled type 2 diabetes mellitus with hyperglycemia: Code(s): E11.65 - Type 2 diabetes mellitus with hyperglycemia Category: Medical Plan: We will continue the metformin. I did give her a CGM as she has found this helpful in the past in regards to diet and lifestyle. (2) High blood pressure: Code(s): I10 - Essential (primary) hypertension Category: Medical Qualifiers: Hypertension type: primary hypertension Qualified Code(s): I10 - Essential (primary) hypertension Plan: WNL. Continue current regimen (3) HLD (hyperlipidemia): Code(s): E78.5 - Hyperlipidemia, unspecified Category: Medical Plan: Continue atorvastatin. Managed by PCP. Orders: Orders AMB Hemoglobin A1c Today E11.65 - Type 2 diabetes mellitus with hyperglycemia, Z13.9 - Encounter for screening, unspecified Medications: Changed From metformin ER 1,000 mg (2 x 500 mg) PO BID 90 days 360 tabs 0RF To metformin ER 1,500 mg (3 x 500 mg) PO DAILY 270 tabs 3RF 90 days Discontinued dulaglutide (Trulicity) Discontinued Reason: Duplicate 0.75 mg (0.5 mL) subcut QWEEK 2 mL 4RF Coding Level of Care Code Est Pt Level 4 (61540) Complex EM visit Add On G2211 Diagnoses Uncontrolled type 2 diabetes mellitus with hyperglycemia E11.65 Primary hypertension I10 Hypertension type: primary hypertension HLD (hyperlipidemia) E78.5
[2025-04-17 11:28] VITALS: BP 110/60; PULSE 97; O2SAT 95; BMI 28.5
[2025-04-17 11:40] LABS: Glucose, Whole Blood 153 mg/dL (60-115)
--- OUTSIDE RECORDS SUMMARY | 2025-04-17 12:32 | XMS_ITS | Clinical Summary ---
Author Organization [address] [facility] Address [address] [place] [address] Phone Care Team Providers Care Production Foreman Name Role Phone Unavailable Primary Care Provider Unavailabl e Social History Tobacco Use Types Packs/Day Years Used Date Smoking Tobacco: Never Assessed Comments Unknown Sex and Gender Information Value Date Recorded Sex Assigned at Not on file Legal Sex Female 2:38 PM EST Gender Identity Not on file Sexual Orientation Not on file Plan of Treatment Health Maintenance Due Date Last Done Comments DTaP,Tdap,and Td Vaccines (1 - Tdap) 1969 Pneumococcal Vaccine: 50+ Ye ars (1 of 1 - PCV) 2000 Zoster Vaccines (1 of 2) 2000 COVID-19 Vaccine ( - 2023-2 5 season) 2024 Colorectal Cancer Screening: Colonoscopy 12/08/2024 Depression Screening 12/08/2024 Falls Risk Assessment 12/08/2024 Hepatitis C Screening 12/08/2024 Medicare Annual Wellness Visit 12/08/2024 Osteoporosis Screening (Bone Density Screening) 12/08/2024 Social Influencers of Health Screening 12/08/2024 RSV Immunization Adult Patie nts (1 - 1-dose 75+ series) 2025 Influenza Vaccine (#1) 2025 HIB Vaccines Aged Out No longer [...] on patient's age to complete this topic Insurance MEDICARE
--- OUTSIDE RECORDS SUMMARY | 2025-04-17 12:32 | XMS_ITS | Clinical Summary ---
Author Organization [employer] Address [address] [facility] [address] [place] [address] Care Team Providers Care Lepidopterist Name Role Phone Unavailable Primary Care Provider Unavailabl e Immunizations Immunization Administration Dates Next Due Pfizer Covid-19 Vaccine 12+ Bivalent 10/24/2022 Social History Tobacco Use Types Packs/Day Years Used Date Smoking Tobacco: Never Assessed Comments Unknown Sex and Gender Information Value Date Recorded Sex Assigned at Not on file Legal Sex Female 1:22 PM EST Gender Identity Not on file Sexual Orientation Not on file Plan of Treatment Health Maintenance Due Date Last Done Comments CT Colonography 1950 Colonoscopy 1950 Colorectal Cancer Screening 1950 Depression Screening 1950 FIT DNA/Cologuard 1950 FIT 1950 FOBT 1950 SDOH Screening 1950 Sigmoidoscopy 1950 Alcohol/Substance Use Screening 1962 Tobacco Screening 1962 Hepatitis C Screening 1968 DTaP/Tdap/Td Vaccines (1 - Tdap) 1969 Pneumococcal Vaccine: 50+ Ye ars (1 of 1 - PCV) 2000 Zoster Vaccines (1 of 2) 2000 COVID-19 Vaccine (2 - 2023-2 5 season) 2024 10/24/2022 RSV Patients and Pa tients Aged 60 years or older (1 - 1-dose 75+ series) 2025 Influenza [...] patient's age to complete this topic Meningococcal Vaccine Aged Out No lefty jerome eligible based on patient's age to complete this topic RSV under 20 months Aged Out No longe r eligible based on patient's age to complete this topic Rotavirus Vaccines Aged Out No longer eligible based on patient's age to complete this topic Insurance [facility] [employer]
== END 2025-04-17 12:06 | disposition home or self-care (01) ==
LOC: HO.ENCR 11:24
PROVIDERS: PCP Internal Medicine; Visit Provider Physician Assistant
DX: E11.65 Type 2 diabetes mellitus with hyperglycemia (principal); I10 Essential (primary) hypertension; E78.5 Hyperlipidemia, unspecified; Z13.9 Encounter for screening, unspecified

== ENCOUNTER → 2025-04-17 11:24 | Outpatient (BNVA) | payer MEDICARE, BC, SELFPAY | PROVIDERS: PCP Internal Medicine; Visit Provider Physician Assistant | DX: E11.65 Type 2 diabetes mellitus with hyperglycemia (principal); E78.5 Hyperlipidemia, unspecified; I10 Essential (primary) hypertension | CPT/HCPCS: 82947; 83036; 99212 ==

== ENCOUNTER 2025-06-28 11:00 | Outpatient (REF) | payer MEDICARE, BC, SELFPAY ==
--- NOTE | ~2025-06-28 | MM_ITS ---
EXAMINATION: MM SCREENING DIGITAL BREAST TOMOSYNTHESIS, BILATERAL CLINICAL INFORMATION: Screening. Asymptomatic. History of lung cancer diagnosed October 2024 status post right port placement and left sided radiation therapy to the lung COMPARISON: Mammography: Comparison is made with available priors TECHNIQUE: Digital breast mammography with tomosynthesis is performed in both the craniocaudal and mediolateral oblique views along with computer-aided detection (CAD). FINDINGS: There are scattered areas of fibroglandular density. Right: There are no significant masses, abnormal calcifications, or other abnormalities. Left: Stranding and changes from radiation therapy to the left retroareolar region posterior depth are seen and likely represent postradiation changes. No suspicious masses calcifications or other abnormal findings. MM/MM tomosynthesis screening BI IMPRESSION: Additional imaging is recommended ASSESSMENT: BI-RADS Category 2: Benign RECOMMENDATION: Routine annual mammography screening. 1 year F/U This examination should not preclude the clinical evaluation of a suspicious palpable abnormality. This patient's information was entered into a reminder system with a target due date for their next mammogram. Electronically signed by: Camille Richard DO 06/28/2025 01:44 PM EDT
--- OUTSIDE RECORDS SUMMARY | 2025-06-28 14:13 | XMS_ITS | Encounter Summary ---
Author Organization [facility] Address [address] [place] [address] Care Team Providers Care Interactive Graphic Designer Name Role Phone Unavailable Primary Care Provider Unavailabl e Encounter Details Date Type Department Care Team (Late st Contact Info) Description 12/07/2024 Lab Requisition [facility] Main Lab [address] [place] [id number] Woodrow Sommers MD [facility] [address] [place] [phone] Urinary tract infection, site not specified Social [...] Urine No growth 12/09/2024 1:19 PM EST [facility] Urine Urine specimen obtained by clean catch procedure / Unknown 12/07/2024 12/07/2024 2:50 PM EST Woodrow Sommers MD LAB MICROBIOLOGY - GENERA L ORDERABLES Final Result [facility] [address] [place] [address], documented in this encounter Visit Diagnoses Diagnosis Urinary tract infection, site not specified documented in this encounter
--- OUTSIDE RECORDS SUMMARY | 2025-06-28 14:13 | XMS_ITS | Clinical Summary ---
Author Organization LL [address] [facility] Address [address] [place] [address] Phone Care Team Providers Care Sales Order Specialist Name Role Phone Unavailable Primary Care Provider [...] 2000 Zoster Vaccines (1 of 2) 2000 Depression Screening 10/05/2024 Colorectal Cancer Screening: Colonoscopy 12/08/2024 Falls Risk Assessment 12/08/2024 Hepatitis C Screening 12/08/2024 Medicare Annual Wellness Visit 12/08/2024 Osteoporosis Screening (Bone Density Screening) 12/08/2024 Social Influencers of Health Screening 12/08/2024 RSV Immunization Adult Patie nts (1 - 1-dose 75+ series) 2025 COVID-19 Vaccine ( - 2023-2 5 season) 2025 Influenza Vaccine (#1) 2025 HIB Vaccines [...]
--- OUTSIDE RECORDS SUMMARY | 2025-06-28 14:13 | XMS_ITS | Clinical Summary ---
Author Organization [employer] Address [address] [facility] [address] [place] [address] Care Team Providers Care Outside Plant Supervisor Name Role Phone Unavailable Primary Care [...] 2000 Zoster Vaccines (1 of 2) 2000 RSV Patients and Pa tients Aged 60 years or older (1 - 1-dose 75+ series) 2025 COVID-19 Vaccine (2 - 2024-2 6 season) 2025 10/24/2022 Influenza Vaccine (#1) 2025 HIB Vaccines Aged [...] patient's age to complete this topic Insurance [facility] FED[facility]AL
== END 2025-06-28 11:01 | disposition home or self-care (01) ==
LOC: HO.MAMMO 11:00
PROVIDERS: PCP Internal Medicine; Visit Provider Internal Medicine
DX: Z12.31 Encounter for screening mammogram for malignant neoplasm of breast (principal)
CPT/HCPCS: 77063; 77067

== ENCOUNTER → 2025-06-28 11:00 | Outpatient (BNV) | payer MEDICARE, BC, SELFPAY | PROVIDERS: PCP Internal Medicine; Visit Provider Internal Medicine | DX: Z12.31 Encounter for screening mammogram for malignant neoplasm of breast (principal) | CPT/HCPCS: 77063; 77067 ==

== ENCOUNTER 2025-08-14 11:21 | Outpatient (AMB) | payer MEDICARE, BC, SELFPAY ==
[2025-08-14 11:24] VITALS: BP 124/58; PULSE 95; O2SAT 94; BMI 28.3
--- NOTE | 2025-08-14 11:24 | A.OFFVIS_ITS ---
Vital Signs 08/14/25 11:24 Height 5 ft 2 in Weight 154 lb 15.759 oz BMI 28.3 BP 124/58 L Blood Pressure Location Lt brachial Position Sitting Pulse 95 Pulse Source Pulse Oximeter Pulse Oximetry (%) 94 Oxygen Delivery Method Room Air Intake Visit Reasons: T2DM Intake Note: Patient present today for Type 2 Diabetes Mellitus Last Diabetic eye exam: Last exam was about 2 months ago, has upcoming appt in September 2025. Last Podiatry Visit: Doesn't have one Random Glucose: 221 mg/dl HgA1C: 7.6% Human Resources Psychologist Required: No Accompanied by: Daughter Allergies No Known Allergies Allergy (Verified 08/14/25 11:29) Medication List - Last Reconciled 08/14/25 by Ashley Astudillo PA-C atorvastatin 10 mg PO DAILY blood sugar diagnostic (Accu-Chek Guide test strips) Use to check blood glucose 2 x a day As directed blood-glucose meter (Accu-Chek Guide Glucose Meter) As directed blood-glucose sensor (FreeStyle Agustina 3 Sensor device) Apply every 14 days As directed blood-glucose,production grader,cont (FreeStyle Agustina 3 [place]) As directed lancets (Accu-Chek Softclix Lancets) Use check blood glucose BID As directed lisinopril 5 mg PO DAILY metformin ER 1,000 mg (2 x 500 mg) PO BID 90 days metoprolol succinate ER 25 mg PO DAILY HPI HPI T2DM: Details: Patient is a 75-year-old female with a significant past medical history of hypertension, hyperlipidemia, type 2 diabetes, lung CA, and osteopenia presenting today for a diabetic consult. She is accompanied today by her daughter. Endo: Today her A1c is 7.6. She is currently on metformin 1000 mg in the morning and 500 in the evening. She states that her diet has been a little more liberal over the last few months. She was previously better with her diet while undergoing chemo. She s tates that now she is less careful but tries not to eat poorly. She stopped the glipizide due to hypoglycemia, Jardiance cause frequent UTIs Her last eye exam was 02/25 and she states that she was diagnosed with cataracts. This is her 1st eye exam in about 40 years. She does not see a product line manager but sometimes gets tingling in her feet. She does check her blood sugars 1 to 2 times a day. In the morning it seems like her blood sugars are between 120 and 140. Denies any hypoglycemic events CV: Her blood pressure today in the office is 124/58. She is on lisinopril 5 mg, metoprolol 25 mg. Cholesterol is managed with atorvastatin 10 mg. [facility] Medical History Lung cancer Diabetic cataract of both eyes Uncontrolled type 2 diabetes mellitus with hyperglycemia Diabetes High blood pressure Surgical History History of bladder surgery H/O: hysterectomy Social History Household Members: None Housing: House Alcohol intake: never Patient Tobacco Use Status: Former Tobacco user Physical Exam Vital Signs: Last Vital Signs Pulse 95 08/14/25 11:24 BP 124/58 L 08/14/25 11:24 Pulse Ox 94 08/14/25 11:24 Oxygen Delivery Method Room Air 08/14/25 11:24 BMI result Body Mass Index 28.3 Const Orientation/consciousness: patient oriented x3 HEENT Ears: hearing grossly normal bilaterally Neck Thyroid: Thyroid normal Lymphatic: no lymphadenopathy noted Resp Auscultation: clear to auscultation bilaterally Cardio Rate: regular rate Rhythm: regular rhythm Heart sounds: S1 normal heart sound present and S2 normal heart sound present Skin General skin exam: no rashes or lesions noted Neuro General: patient oriented x3, gait normal and no focal motor deficits Results AMB Hemoglobin A1c AMB Hemoglobin A1c 7.6 % Last Edit by MADISON Eddy on 08/14/25 11:41 Results Reviewed Results Reviewed: Laboratory Last Values Glucose (Clinic) 221 mg/dL (60-115) H 08/14/25 11:31 Assessment & Plan Assessment & Plan (1) Uncontrolled type 2 diabetes mellitus with hyperglycemia: Code(s): E11.65 - Type 2 diabetes mellitus with hyperglycemia Category: Medical Plan: We will increase metformin to 1000 mg twice a day I did give her a CGM as she has found this helpful in the past in regards to diet and lifestyle. She will send me a copy of her labs from her PCP that she is doing tomorrow. (2) High blood pressure: Code(s): I10 - Essential (primary) hypertension Category: Medical Qualifiers: Hypertension type: primary hypertension Qualified Code(s): I10 - Essential (primary) hypertension Plan: WNL. Continue current regimen (3) HLD (hyperlipidemia): Code(s): E78.5 - Hyperlipidemia, unspecified Category: Medical Plan: Continue atorvastatin. Managed by PCP. Orders: Orders AMB Hemoglobin A1c Today E11.65 - Type 2 diabetes mellitus with hyperglycemia, Z13.9 - Encounter for screening, unspecified Medications: Changed From metformin ER 1,500 mg (3 x 500 mg) PO DAILY 90 days 270 tabs 3RF To metformin ER 1,000 mg (2 x 500 mg) PO BID 360 tabs 1RF 90 days Patient Instructions: a1c today is 7.6. we increased metformin to 1000 mg twice a day our next steps are to consider [facility] Coding Level of Care Code Est Pt Level 4 (96356) Complex EM visit Add On G2211 Diagnoses Uncontrolled type 2 diabetes mellitus with hyperglycemia E11.65 Primary hypertension I10 Hypertension type: primary hypertension HLD (hyperlipidemia) E78.5
[2025-08-14 11:35] LABS: Glucose, Whole Blood 221 mg/dL (60-115)
--- OUTSIDE RECORDS SUMMARY | 2025-08-14 13:43 | XMS_ITS | Clinical Summary ---
Author Organization [employer] Address [address] [facility] [address] [place] [address] Care Team Providers Care Freight Coordinator Name Role Phone Unavailable Primary Care Provider [...] patient's age to complete this topic Insurance [facility] [employer]
--- OUTSIDE RECORDS SUMMARY | 2025-08-14 13:43 | XMS_ITS | Encounter Summary ---
Author Organization [facility] Address [address] [place] [address] Care Team Providers Care Quantitative Researcher Name Role Phone Unavailable Primary Care Provider Unavailabl e Encounter Details Date Type Department Care Team (Late st Contact Info) Description 12/07/2024 Lab Requisition [facility] - Main Lab [address] [place] [phone] [facility] Sommers MD [address] [facility] [address] [place] [phone] Urinary tract infection, site not specified Social [...] Urine No growth 12/09/2024 1:19 PM EST [facility] Urine Urine specimen obtained by clean catch procedure / Unknown 12/07/2024 12/07/2024 2:50 PM EST Woodrow Sommers MD LAB MICROBIOLOGY - GENERA L ORDERABLES Final Result [facility] [address] [place] [address], documented in this encounter Visit Diagnoses Diagnosis Urinary tract infection, site not specified documented in this encounter
--- OUTSIDE RECORDS SUMMARY | 2025-08-14 13:43 | XMS_ITS | Clinical Summary ---
Author Organization [address] [facility] Address [address] [place] [address] Phone Care Team Providers Care Leguillon Debeader Name Role Phone Unavailable Primary Care Provider Unavailabl e Social History Tobacco Use Types Packs/Day Years Used Date Smoking Tobacco: Never Assessed Comments Unknown Sex and Gender Information Value Date Recorded Sex Assigned at Not on file Legal Sex Female 2:38 PM EST Gender Identity Not on file Sexual Orientation Not on file Plan of Treatment Health Maintenance Due Date Last Done Comments Colorectal Cancer Screening: Colonoscopy 1950 DTaP,Tdap,and Td Vaccines (1 - Tdap) 1969 Pneumococcal Vaccine: 50+ Ye ars (1 of 1 - PCV) 2000 Zoster Vaccines (1 of 2) 2000 Depression Screening 10/05/2024 Falls Risk Assessment 12/08/2024 Hepatitis C Screening [...]
== END 2025-08-14 11:59 | disposition home or self-care (01) ==
LOC: HO.ENCR 11:21
PROVIDERS: PCP Internal Medicine; Visit Provider Physician Assistant
DX: E11.65 Type 2 diabetes mellitus with hyperglycemia (principal); I10 Essential (primary) hypertension; E78.5 Hyperlipidemia, unspecified; Z13.9 Encounter for screening, unspecified

== ENCOUNTER → 2025-08-14 11:21 | Outpatient (BNVA) | payer MEDICARE, BC, SELFPAY | PROVIDERS: PCP Internal Medicine; Visit Provider Physician Assistant | DX: E11.65 Type 2 diabetes mellitus with hyperglycemia (principal); E78.5 Hyperlipidemia, unspecified; I10 Essential (primary) hypertension | CPT/HCPCS: 82947; 83036; 99212 ==